=== PATIENT | female | born 1995 | race Caucasian/White ===

== ENCOUNTER 2016-05-17 15:45 | Inpatient (IN) | payer MEDICAID ==
--- NOTE | 2016-05-17 16:31 | C.PDOC ---
History Of Present Illness <Emy Corbin - Last Filed: 05/17/16 16:39> <AnandKarissa lemus - Last Filed: 05/17/16 18:50> <Juan Carlos Rico - Last Filed: 05/18/16 00:28> 21 y/o female is brought in to the ED by EMS who report that mother called EMS stating that patient is non compliant with medications. Mother reports history of depression, bipolar disorder, and schizophrenia. Patient not cooperative with EMS or ED staff. Refusing to open her eyes or answer question. EMS noted that the patient was tearful at one point. (Karissa Anand) <Emy Corbin - Last Filed: 05/17/16 16:39> History Per: EMS, Family (mother) History/Exam Limitations: other (pt not cooperating) Onset/Duration Of Symptoms: Unknown Current Symptoms Are (Timing): Still Present Suicide/Self Injury Attempted (Context): None Modifying Factor(s): Other ([facility]) Involuntary Hold By: None Recent travel outside of the [place]: No <ChengKarissa Yosef - Last Filed: 05/17/16 18:50> <JackyCasandrareji - Last Filed: 05/18/16 00:28> Time Seen by Provider: 05/17/16 16:03 Chief Complaint (Nursing): Psychiatric Evaluation Past Medical History Reviewed: Historical Data, Nursing Documentation, Vital Signs - Medical History PMH: Bipolar Disorder, Depression, Schizophrenia Surgical History: No Surg Hx Family History: States: Unknown Family Hx - Social History Hx Tobacco Use: No Hx Alcohol Use: No Hx Substance Use: No - Immunization History Hx Tetanus Toxoid Vaccination: No Hx Influenza Vaccination: No Hx Pneumococcal Vaccination: No <ChengGiovanniKarissa L - Last Filed: 05/17/16 18:50> Vital Signs: Last Vital Signs Temp 98.3 F 05/17/16 23:15 Pulse 51 L 05/17/16 23:15 Resp 14 05/17/16 23:15 BP 111/71 05/17/16 23:15 Pulse Ox 99 05/17/16 23:15 - [facility] Procedures PSYCHIA INTERV/EVAL NEC (08/23/14) Review Of Systems Review Of Systems: ROS cannot be obtained secondary to pt's inabilty to answer questions. (pt uncooperative) <AnandKarissa Yosef - Last Filed: 05/17/16 18:50> Physical Exam - Physical Exam Appears: Non-toxic, No Acute Distress Skin: Normal Color, Warm, Dry Head: Atraumatic, Normacephalic Eye(s): bilateral: PERRL, Other (pt refusing to open eyes) Neck: Supple Chest: Symmetrical Cardiovascular: Rhythm Regular Respiratory: Normal Breath Sounds, No Rales, No Rhonchi, No Wheezing Pulses: Left Radial: Normal, Right Radial: Normal Neurological/Psych: Other (pt nonverbal, refusing to answer question or open her eyes, nonresponsive to verbal stimuli) Pain Response: Withdraws With Pain <AnandKarissa Yosef - Last Filed: 05/17/16 18:50> ED Course And Treatment - Laboratory Results Result Diagrams: 05/17/16 17:15 05/17/16 17:15 Lab Interpretation: No Acute Changes O2 Sat by Pulse Oximetry: 100 (ra) Pulse Ox Interpretation: Normal <AnandKarissa Yosef - Last Filed: 05/17/16 18:50> - Laboratory Results Result Diagrams: 05/17/16 17:15 05/17/16 17:15 O2 Sat by Pulse Oximetry: 100 Pulse Ox Interpretation: Normal - Radiology CXR: Interpreted by Me, Viewed By Me CXR Interpretation: No: Infiltrates, Fracture, Pnemothorax <Juan Carlos Rico - Last Filed: 05/18/16 00:28> Supervising Attending Note - Supervising Attending Note The Documented history was done by the: Physician Tax Assistant The documented physical exam was done by the: Physician Tax Assistant The documented procedures were done by the: Physician Tax Assistant EM CAVEAT: Acuity of Condition, Uncooperative, Language Barrier - Attestation: I have personally seen and examined this patient.: Yes I have fully participated in the care of the patient.: Yes I have reviewed all pertinent clinical information, including history, physical exam and plan: Yes <Emy Corbin - Last Filed: 05/17/16 16:39> <ChengKarissa L - Last Filed: 05/17/16 18:50> <Juan Carlos Rico - Last Filed: 05/18/16 00:28> - Notes: Notes:: LIMITED DUE TO UNCOOP, POOR HISTORIAN. FAMILY STATES PT ACTING BIZARRE, NONCOMPLIANT W MEDS UNK DURATION. EXAM ABOVE. PT FOCAL WITHDRAWAL, ACTIVE FIGHTING AWAY NOXIOUS STIM, ACTIVE RESISTANCE TO EYE EXAM, NONVERBAL. VSS. (Emy Corbin) Medical Decision Making <Emy Corbin - Last Filed: 05/17/16 16:39> <Karissa Anand - Last Filed: 05/17/16 18:50> <Juan Carlos Rico - Last Filed: 05/18/16 00:28> Medical Decision Making: Impression: as per EMS for evaluation per mother's request. Hx bipolar, depression, and schizophrenia. Pt uncooperative, refusing to answer questions or open her eyes. Plan: * Blood Work * Urinalysis * Urine HCG Progress: Patient not cooperative. Call for therapeutic program worker and Dr Corbin also examines patient at bedside. Orders placed for medical clearance. long term care social worker Estela reports that she got in contact with the patient's sister. Sister reports that EMS was called because the patient was banging her head against the wall. She denies any verbalization of suicidal ideation. Sister notes that the patient had been living with her uncle for 4 months and showed up at their mother's house today. She states that the patient is generally non compliant with her treatment. Sister states that when non compliant patient paces and is verbally and physically aggressive, though she has not been known to physically hurt anyone. Sister notes that after EMS was called patient became uncooperative, refusing to respond. Patient remains as such in the ED. Labs reviewed by me and no acute findings. As per therapeutic program worker, patient still refusing to answer questions, will have to call for [facility] [place] Patient care signed out to Dr Rico (Karissa Anand) ED OBSERVATION <Emy Corbin - Last Filed: 05/17/16 16:39> Date of observation admission: 05/17/16 Time of observation admission: 17:00 <Karissa Anand - Last Filed: 05/17/16 18:50> <Juan Carlos Rico - Last Filed: 05/18/16 00:28> - Observation admission statement Patient is being placed in observation because:: Schizophrenia (Karissa Anand) - Goals of Observation Goals of observation are:: Psych Screener (Karissa Anand) - Progress Note Progress Note: 05/17/16 19:00 Patient care signed over to Dr Rico pending screener from [facility] (Karissa Anand) 05/17/16 23:08 still awaiting [facility] screener. Pt without complaints, Vitals stable (Juan Carlos Rico ) Disposition <Emy Corbin - Last Filed: 05/17/16 16:39> <Karissa Anand - Last Filed: 05/17/16 18:50> Discussed With Dr.: Mikayla Pino Comment: accepted the pt onhis service and took over the care at 12:27AM Doctor Will See Patient In The: Hospital Counseled Patient/Family Regarding: Studies Performed, Diagnosis - Disposition Disposition Time: 19:00 <Juan Carlos Rico - Last Filed: 05/18/16 00:28> - Disposition Disposition: HOSPITALIZED Condition: FAIR - Clinical Impression Clinical Impression: Schizophrenia <Emy Corbin - Last Filed: 05/17/16 16:39> - PA / HOUSE FELLOW / Resident Statement MD/DO has reviewed & agrees with the documentation as recorded. - Scribe Statement The provider has reviewed the documentation as recorded by the Scribe (Tania Alonzo) <Karissa Anand - Last Filed: 05/17/16 18:50> <Juan Carlos Rico - Last Filed: 05/18/16 00:28> - Scribe Statement All medical record entries made by the Scribe were at my direction and personally dictated by me. I have reviewed the chart and agree that the record accurately reflects my personal performance of the history, physical exam, medical decision making, and the department course for this patient. I have also personally directed, reviewed, and agree with the discharge instructions and disposition. (Karissa Anand) Decision To Admit <Karissa Anand - Last Filed: 05/17/16 18:50> - Pt Status Changed To: Hospital Disposition Of: Inpatient - Admit Certification Admit to Inpatient:: After my assessment, the patient will require hospitalization for at least two midnights. This is because of the severity of symptoms shown, intensity of services needed, and/or the medical risk in this patient being treated as an outpatient. - InPatient: Physician Admission Certification: I certify that this patient requires 2 or more midnights of care for the following reason:: After my assessment, the patient will require hospitalization for at least two midnights. This is because of the severity of symptoms shown, intensity of services needed, and/or the medical risk in this patient being treated as an outpatient. - . Bed Request Type: Psychiatry Admitting Physician: Mikayla Pino <Juan Carlos Rico - Last Filed: 05/18/16 00:28> - . Patient Diagnosis: Schizophrenia
[2016-05-17 17:18] LABS: RBC URINE 1 /hpf (0-3); URINE BACTERIA RARE (<OCC); URINE BILIRUBIN NEGATIVE (NEGATIVE); URINE BLOOD NEGATIVE (NEGATIVE); URINE COLOR Yellow (YELLOW); URINE GLUCOSE (UA) NORMAL (Normal); URINE KETONE TRACE mg/dL (NEGATIVE); URINE LEUKOCYTE ESTERASE NEG Leu/uL (Negative); URINE PROTEIN 1+ mg/dL (NEGATIVE); URINE UROBILINOGEN NORMAL mg/dL (0.2-1.0); WBC URINE 1 /hpf (0-5)
[2016-05-17 17:18] LABS: BASO % 0.6 % (0.0-2.0); EOS # 0.1 K/uL (0.0-0.7); EOS % 1.1 % (0.0-4.0); HEMATOCRIT 35.7 % (34.0-47.0); LYMPH # 2.5 K/uL (1.0-4.3); LYMPH % 30.3 % (20.0-40.0); MEAN CELL VOLUME 87.6 fL (81.0-99.0); MEAN CORPUSCULAR HEMOGLOBIN 30.7 pg (27.0-31.0); MEAN CORPUSCULAR HGB CONC 35.1 g/dL (33.0-37.0); MEAN PLATELET VOLUME 7.7 fL (7.2-11.7); MONO # 0.9 K/uL (0.0-0.8); MONO % 11.1 % (0.0-10.0); RED CELL DISTRIBUTION WIDTH 12.5 % (11.5-14.5); WHITE BLOOD COUNT 8.2 K/uL (4.8-10.8)
[2016-05-17 17:41] LABS: CHLORIDE 97 mmol/L (98-107)
[2016-05-17 17:42] LABS: POTASSIUM 3.6 mmol/L (3.6-5.2); SODIUM 141 mmol/L (132-148)
[2016-05-17 17:44] LABS: ALB/GLOB RATIO 1.2 (1.0-2.1); ALKALINE PHOSPHATASE 43 U/L (38-126); ALT/SGPT 28 U/L (9-52); AST/SGOT 17 U/L (14-36); BILIRUBIN,TOTAL 0.5 mg/dL (0.2-1.3); BLOOD UREA NITROGEN 9 mg/dL (7-17); CARBON DIOXIDE 30 mmol/L (22-30); GFR AFRICAN-AMERICAN > 60; GLUCOSE,RANDOM 92 mg/dL (65-105); TOTAL PROTEIN 7.1 g/dL (6.3-8.3)
[2016-05-17 17:45] LABS: ALCOHOL SERUM < 10 mg/dl (0-10); CALCIUM 8.6 mg/dl (8.6-10.4)
[2016-05-18 00:28] VITALS: O2SAT 100
[2016-05-18] MEDS ORDERED: Influenza Virus Vaccine 45 mcg/0.5 ml Syr IM ONE (01:59)
[2016-05-18] MEDS ORDERED: Pneumococcal 23-Valent Vaccine IM ONE (01:59)
--- NOTE | 2016-05-18 09:33 | RAD ---
PROCEDURE: CHEST RADIOGRAPH, 1 VIEW HISTORY: medical screening COMPARISON: None available. FINDINGS: LUNGS: Clear. PLEURA: No pneumothorax or pleural fluid seen. CARDIOVASCULAR: Normal. OSSEOUS STRUCTURES: No significant abnormalities. VISUALIZED UPPER ABDOMEN: Normal. OTHER FINDINGS: None. IMPRESSION: No active disease.
--- NOTE | 2016-05-18 12:08 | PCM.PSYCH ---
Initial Psychiatric Evaluation - Initial Psychiatric Evaluation Type of Admission: Voluntary Legal Status: Capacity Chief Complaint (in patient's own words): "I'm sleepy" History of Present Illness and Precipitating Events: The patient is seen, chart reviewed and case discussed. This is a 21-year-old female, single, no child, unemployed, brought here by her family. The patient was living with her brother in [place] for the last 4 months and getting treatment, but she suddenly came back to [place] without letting her family and off. Her brother is on vacation and could not be reached. Her family brought her in because she was acting bizarre, banging her head on the wall and getting aggressive. She was also almost catatonic in ER. They reported that the patient has a chronic mental illness, schizophrenia or bipolar disorder, and was on a depot medication once a month which they don't know the name. They do not know why she left [place] but the patient last night said that she was upset about an ex-boyfriend getting . However again is not clear why she left [place]. The patient would not elaborate to the science writer either. The patient states "no" or "I don't know" to most questions including suicidality and homicidality and hallucinations/delusions. However, she looks internally preoccupied, is our and inappropriate such as she disrobe in the hallway and she was also aggressive with staff at times. Unknown drug hx but UDS is negative Past psych history: Patient has been hospitalized in the past. Her medications are unknown at this point. Family psych history: Unknown Medical history: Unknown Current Medications: Active Medications Generic Name Dose Route Start Last Admin Trade Name Freq PRN Reason Stop Dose Admin Benztropine Mesylate 0.5 mg 05/18/16 10:00 05/18/16 09:31 Cogentin PO 0.5 mg BID FRANKY Administration Divalproex Sodium 500 mg 05/18/16 18:00 Depakote Er PO BID FRANKY Haloperidol 5 mg 05/18/16 10:00 05/18/16 09:31 Haldol PO 5 mg BID FRANKY Administration Haloperidol 5 mg 05/18/16 08:31 Haldol PO Q2H PRN agitation, max 4x/24h Hydroxyzine HCl 25 mg 05/18/16 08:29 Atarax PO Q4H PRN Anxiety Ibuprofen 600 mg 05/18/16 08:29 Motrin Tab PO Q6H PRN Pain, moderate (4-7) Lorazepam 1 mg 05/18/16 10:00 05/18/16 09:37 Ativan PO 1 mg BID FRANKY Administration Quetiapine Fumarate 100 mg 05/18/16 22:00 Seroquel PO HS FRANKY Trazodone HCl 50 mg 05/18/16 08:29 Desyrel PO HS PRN Insomnia Past Psychiatric History - Past Psychiatric History Previous Treatment History: Inpatient Pertinent Medical Hx (Current Medical&Sleep Prob, Allergies): Allergies Allergy/AdvReac Type Severity Reaction Status Date / Time No Known Allergies Allergy Verified 02/05/15 08:18 Famotidine [Pepcid AC] 20 mg PO DAILY #20 ctb 02/05/15 Haloperidol Decanoate [Haldol Decanoate--long acting] 1 ml IM ONCE 02/05/15 Sikes 1 tab PO BID 02/05/15 Review of Systems - Neurological Neurological: Confusion - Psychiatric Psychiatric: Abnormal Sleep Pattern, Irritability. absent: Homicidal Ideation, Suicidal Ideation Mental Status Examination - Personal Presentation Personal Presentation: Looks stated age - Affect Affect: Flat - Motor Activity Motor Activity: Psychomotor Agitation - Reliability in Providing Information Reliability in Providing Information: Poor, due to alteration in thoughts - Speech Speech: Disorganized, Irrelevant - Mood Mood: Anxious - Formal Thought Process Formal Thought Process: Loosening of associations - Cognitive Functions Orientation: Situation (cannot be assessed due to no cooperation) Attention/Concentration: Easily distracted Abstract Thinking: [place] Estimate of Intelligence: Below average Judgement: Imparied, as evidence by: Poor judgement Memory: Recent impaired, as evidence by: Inability to recall events of the day, Remote impaired as evidenced by: Inability to recall sig life events - Risk Risk: Diminished functioning, Other (catatonia) - Strength & Assets Inventory Strength & Assets Inventory: Family support DSM 5 DX - DSM 5 DSM 5 Diagnosis: Schizoaffective d/o - bipolar type - Recommended/Plan of Treatment Treatment Recommendations and Plan of Treatment: Haldol 5 mg BID for psychosis Depakote ER 500 mg BID for mood sxs Cogentin 0.5 mg BID for SEs Ativan 1 mg BID for catatonic sxs/anxiety Seroquel 50 hs for insomnia Collateral info from family re her depot med Close observation Support and psychoed family meeting Refer to DTP on d/c 33 min Projected ELOS: 7 days Prognosis: good with treatment Discharge Plan and Discharge Criteria: No psychosis or chelsea, no catatonic sxs refer to DTP
[2016-05-18] MEDS: Divalproex 500 mg ER Tab PO SCH (18:35)
[2016-05-19] MEDS: Divalproex 500 mg ER Tab PO SCH ×2 (09:08→17:34)
--- NOTE | 2016-05-19 13:38 | PCM.PYCHPN ---
Psychiatric Progress Note - Psychiatric Progress Note Patient seen today, length of contact: 16 min Patient Chief Complaint: "I'm OK" Problems Identified/Issues Discussed: The pt is seen, chart reviewed, case discussed with staff. The pt is compliant with medications and reports no side-effects. Symptoms are improving slowly but needs more time to stabilize. She is however still disorganized, less catatonic. Singing loudly in the hallways - redirectable. She claimed she came on her own but a friend helped her (from [place] to [place]) and that she will NOT go back and will stay with her mother.. She is OK with attending [facility]. Medication Change: Yes (adjust ativan) Medical Record Reviewed: Yes Mental Status Examination - Cognitive Function Orientation: Person, Place, Situation, Time Memory: Impaired Attention: Poor Concentration: Poor Association: Loose Fund of Knowledge: Poor - Mood Mood: Anxious - Affect Affect: Constricted - Speech Speech: Loud - Formal Thought Process Formal Thought Process: Paranoia, Loosening of associations Goal/Treatment Plan - Goal/Treatment Plan Need for Continued Stay: Discharge may exacerbated symptoms, Severe functional impairment Progress Toward Problem(s) and Goals/Treatment Plan: Haldol 5 mg BID for psychosis Depakote ER 500 mg BID for mood sxs Cogentin 0.5 mg BID for SEs Ativan 0.5 mg TID for catatonic sxs/anxiety Seroquel 50 hs for insomnia Collateral info from family re her depot med Close observation Support and psychoed family meeting Refer to DTP on d/c Estimated Date of D/C: 05/24/16
[2016-05-20] MEDS: Divalproex 500 mg ER Tab PO SCH ×2 (09:32→18:14)
--- NOTE | 2016-05-20 15:27 | PCM.PYCHPN ---
Psychiatric Progress Note - Psychiatric Progress Note Patient seen today, length of contact: 16 min Patient Chief Complaint: I want to leave Problems Identified/Issues Discussed: Patient seen and evaluated, chart reviewed and discussed with the nurse. Patient remained disorganized and internally preoccupied. Patient reports irritability, anxiety and agitation. Patient still appears paranoid and delusional. She denies hearing any voices. She is taking medication and denied any side effects. Supportive therapy and psychoeducation were given. Medication Change: Yes (Increase Haldol) Medical Record Reviewed: Yes Mental Status Examination - Cognitive Function Orientation: Person, Place, Situation, Time Memory: Impaired Attention: Poor Concentration: Poor Association: Loose Fund of Knowledge: Poor - Mood Mood: Anxious - Affect Affect: Constricted - Speech Speech: Loud - Formal Thought Process Formal Thought Process: Delusions, Paranoia, Loosening of associations - Suicidal Ideation Suicidal Ideation: No - Homicidal Ideation Homicidal Ideation: No Goal/Treatment Plan - Goal/Treatment Plan Need for Continued Stay: Discharge may exacerbated symptoms, Severe functional impairment Progress Toward Problem(s) and Goals/Treatment Plan: Schizoaffective disorder bipolar type CBT Psychoeducation Supportive therapy Haldol 5 mg PO Daily Increase Haldol 10 mg at bedtime Depakote ER 500 mg BID for mood sxs Cogentin 0.5 mg BID for SEs Ativan 1 mg BID for catatonic sxs/anxiety Seroquel 50 hs for insomnia Collateral info from family re her depot med Close observation Support and psychoed family meeting Refer to DTP on d/c Estimated Date of D/C: 05/24/16 - Smoking Cessation Smoking Cessation Initiated: No
[2016-05-21] MEDS: Divalproex 500 mg ER Tab PO SCH ×2 (10:51→17:21)
--- NOTE | 2016-05-21 11:19 | PCM.PYCHPN ---
Psychiatric Progress Note - Psychiatric Progress Note Patient seen today, length of contact: 17 min Patient Chief Complaint: I'm feeling better Problems Identified/Issues Discussed: Patient seen and evaluated, chart reviewed and discussed with the nurse. As per the staff patient is taking her medications but still wandering in the hallways. Today patient appeared a bit organized and kempt, but remained internally preoccupied. Patient reports improvement in her mood but still appears paranoid and delusional. She is taking medication and denied any side effects. Supportive therapy and psychoeducation were given. Medication Change: Yes (Increase Haldol) Medical Record Reviewed: Yes Mental Status Examination - Cognitive Function Orientation: Person, Place, Situation, Time Memory: Impaired Attention: Poor Concentration: Poor Association: Loose Fund of Knowledge: Poor - Mood Mood: Anxious - Affect Affect: Constricted - Speech Speech: Loud - Formal Thought Process Formal Thought Process: Delusions, Paranoia, Loosening of associations - Suicidal Ideation Suicidal Ideation: No - Homicidal Ideation Homicidal Ideation: No Goal/Treatment Plan - Goal/Treatment Plan Need for Continued Stay: Discharge may exacerbated symptoms, Severe functional impairment Progress Toward Problem(s) and Goals/Treatment Plan: Schizoaffective disorder bipolar type CBT Psychoeducation Supportive therapy Increase Haldol 10 mg PO Daily Haldol 10 mg at bedtime Depakote ER 500 mg BID for mood sxs Cogentin 0.5 mg BID for SEs Ativan 1 mg BID for catatonic sxs/anxiety Seroquel 50 hs for insomnia Collateral info from family re her depot med Close observation Support and psychoed family meeting Refer to DTP on d/c Estimated Date of D/C: 05/24/16 - Smoking Cessation Smoking Cessation Initiated: No
--- NOTE | 2016-05-21 14:44 | CARD ---
APPROVED REPORT EKG Measurement Heart [id number] <Conclusion> Sinus bradycardia Early repolarization Otherwise normal ECG
[2016-05-22] MEDS: Divalproex 500 mg ER Tab PO SCH ×2 (10:14→17:02)
[2016-05-23] MEDS: Divalproex 500 mg ER Tab PO SCH ×2 (10:06→17:23)
--- NOTE | 2016-05-23 11:59 | PCM.PYCHPN ---
Psychiatric Progress Note - Psychiatric Progress Note Patient seen today, length of contact: 17 min Patient Chief Complaint: I'm feeling much better Problems Identified/Issues Discussed: Patient seen and evaluated, chart reviewed and discussed with the nurse. As per the staff patient is taking her medications and there were no noted episodes of psychosis. Today patient appeared organized and kempt, she was well dressed but remained internally preoccupied with a strong desire to return home to her mother's apartment. The pt denies continuing to have a constant flow of thoughts race through her head today. Patient reports improvement in her mood but still appears paranoid and delusional. She is taking medication and denied any side effects. Supportive therapy and psychoeducation were given. Medication Change: Yes (Increase Haldol) Medical Record Reviewed: Yes Mental Status Examination - Cognitive Function Orientation: Person, Place, Situation, Time Memory: Impaired Attention: Poor Concentration: Poor Association: Loose Fund of Knowledge: Poor - Mood Mood: Anxious - Affect Affect: Constricted - Speech Speech: Loud - Formal Thought Process Formal Thought Process: Delusions, Paranoia, Loosening of associations - Suicidal Ideation Suicidal Ideation: No - Homicidal Ideation Homicidal Ideation: No Goal/Treatment Plan - Goal/Treatment Plan Need for Continued Stay: Discharge may exacerbated symptoms, Severe functional impairment Progress Toward Problem(s) and Goals/Treatment Plan: Schizoaffective disorder bipolar type CBT Psychoeducation Supportive therapy Increase Haldol 10 mg PO Daily Haldol 10 mg at bedtime Depakote ER 500 mg BID for mood sxs Cogentin 0.5 mg BID for SEs Ativan 1 mg BID for catatonic sxs/anxiety Seroquel 50 hs for insomnia Collateral info from family re her depot med Close observation Support and psychoed family meeting Refer to DTP on d/c Estimated Date of D/C: 05/24/16
[2016-05-24] MEDS: Divalproex 500 mg ER Tab PO SCH ×2 (10:29→17:04)
--- NOTE | 2016-05-24 18:09 | PCM.PYCHPN ---
Psychiatric Progress Note - Psychiatric Progress Note Patient seen today, length of contact: 17 min Patient Chief Complaint: I'm feeling much better Problems Identified/Issues Discussed: Patient seen and evaluated, chart reviewed and discussed with the nurse. As per the staff pt still appeared less delusional and less internally preoccupied. However, pt remained calm and cooperative. Patient reports improvement in the hallucinations but still reports, 'multiple voices in the head that are talking to her and are very mean to her.' Pt remained isolated, withdrawn and remained confined to his room. Patient still appears paranoid and delusional. She is taking medication and tolerating very well. Spoke to the mother and informed her about the discharge plan on Friday. Medication Change: No Medical Record Reviewed: Yes Mental Status Examination - Cognitive Function Orientation: Person, Place, Situation, Time Memory: Impaired Attention: WNL Concentration: WNL Association: Loose Fund of Knowledge: Poor - Mood Mood: Anxious - Affect Affect: Constricted - Speech Speech: Loud - Formal Thought Process Formal Thought Process: Hallucinations, Paranoia, Loosening of associations - Suicidal Ideation Suicidal Ideation: No - Homicidal Ideation Homicidal Ideation: No Goal/Treatment Plan - Goal/Treatment Plan Need for Continued Stay: Discharge may exacerbated symptoms, Severe functional impairment Progress Toward Problem(s) and Goals/Treatment Plan: Schizoaffective disorder bipolar type CBT Psychoeducation Supportive therapy Haldol 10 mg PO Daily Haldol 10 mg at bedtime Depakote ER 500 mg BID for mood sxs Cogentin 0.5 mg BID for SEs Ativan 1 mg BID for catatonic sxs/anxiety Seroquel 50 hs for insomnia Collateral info from family re her depot med Close observation Support and psychoed family meeting Refer to DTP on d/c Estimated Date of D/C: 05/24/16 - Smoking Cessation Smoking Cessation Initiated: No
[2016-05-25] MEDS: Divalproex 500 mg ER Tab PO SCH ×2 (10:22→19:05)
--- NOTE | 2016-05-25 14:18 | PCM.PYCHPN ---
Psychiatric Progress Note - Psychiatric Progress Note Patient seen today, length of contact: 15 minutes Patient Chief Complaint: I'm feeling better today Problems Identified/Issues Discussed: Patient seen. Chart reviewed. Case discussed with the staff. Issues related to illness and treatment were discussed with the patient. Reported compliant with treatment with no adverse affects. Tolerating treatment very well. Patient reported feeling much better. According to staff, patient his more clear in her thoughts, less isolative and more cooperative. At the time of evaluation, patient was awake alert oriented 3, had no delusions, no auditory or visual hallucinations, no suicidal ideations or homicidal ideations. Medical Problems: None reported Diagnostic Results: Reviewed DSM 5 Symptoms Update: Improving with treatment Medication Change: No Medical Record Reviewed: Yes Mental Status Examination - Cognitive Function Orientation: Person, Place, Situation, Time Memory: Intact Attention: WNL Concentration: WNL Association: WNL Fund of Knowledge: [facility] Decription of patient's judgement and insights: Fair - Mood Mood: Anxious - Affect Affect: Constricted - Speech Speech: Soft - Formal Thought Process Formal Thought Process: Other - Suicidal Ideation Suicidal Ideation: No - Homicidal Ideation Homicidal Ideation: No Goal/Treatment Plan - Goal/Treatment Plan Need for Continued Stay: Remain at risks for inpatient hospitalization, Discharge may exacerbated symptoms, Severe functional impairment Progress Toward Problem(s) and Goals/Treatment Plan: Improving with treatment Patient education Supportive therapy Continue treatment as before Estimated Date of D/C: 05/27/16 - Smoking Cessation Smoking Cessation Initiated: No
[2016-05-26] MEDS: Divalproex 500 mg ER Tab PO SCH ×2 (09:01→17:33)
--- NOTE | 2016-05-26 17:21 | PCM.PYCHPN ---
Psychiatric Progress Note - Psychiatric Progress Note Patient seen today, length of contact: 15 minutes Patient Chief Complaint: I'm feeling better. Can I go home today Problems Identified/Issues Discussed: Patient seen. Chart reviewed. Case discussed with the staff. Issues related to illness and treatment were discussed with the patient. Reported compliant with treatment with no adverse affects. Tolerating treatment very well. Patient reported feeling much better. According to staff, patient his more clear in her thoughts, less isolative and more cooperative. At the time of evaluation, patient was awake alert oriented 3, had no delusions, no auditory or visual hallucinations, no suicidal ideations or homicidal ideations. Medical Problems: None reported Diagnostic Results: Reviewed DSM 5 Symptoms Update: Improving with treatment Medication Change: No Medical Record Reviewed: Yes Mental Status Examination - Cognitive Function Orientation: Person, Place, Situation, Time Memory: Intact Attention: WNL Concentration: WNL Association: WNL Fund of Knowledge: [facility] Decription of patient's judgement and insights: Fair - Mood Mood: Anxious - Affect Affect: Other (Appropriate) - Speech Speech: Soft - Formal Thought Process Formal Thought Process: No Impairment Psychotic Thoughts and Behaviors: None - Suicidal Ideation Suicidal Ideation: No - Homicidal Ideation Homicidal Ideation: No Goal/Treatment Plan - Goal/Treatment Plan Need for Continued Stay: Remain at risks for inpatient hospitalization, Discharge may exacerbated symptoms, Severe functional impairment Progress Toward Problem(s) and Goals/Treatment Plan: Improving with treatment Patient education Supportive therapy Continue treatment as before Estimated Date of D/C: 05/27/16 - Smoking Cessation Smoking Cessation Initiated: No
[2016-05-27 07:48] VITALS: BP 98/69; PULSE 69; RESP 18; TEMP 96.9
[2016-05-27] MEDS: Divalproex 500 mg ER Tab PO SCH (09:35)
--- NOTE | 2016-05-27 09:50 | PCM.PYCHDC ---
Mental Status Examination - Mental Status Examination Orientation: Person, Place, Situation, Time Memory: Intact Mood: Neutral Affect: Constricted Speech: Soft Attention: WNL Concentration: WNL Association: WNL Fund of Knowledge: WNL Formal Thought Process: No Impairment Description of patient's judgement and insight: good, fair Psychotic Thoughts and Behaviors: denies any AVH Suicidal Ideation: No Current Homicidal Ideation?: No Discharge Summary - Discharge Note Reason for Hospitalization: This is a 21-year-old female, single, no child, unemployed, brought here by her family. The patient was living with her brother in [place] for the last 4 months and getting treatment, but she suddenly came back to [place] without letting her family and off. Her brother is on vacation and could not be reached. Her family brought her in because she was acting bizarre, banging her head on the wall and getting aggressive. She was also almost catatonic in ER. They reported that the patient has a chronic mental illness, schizophrenia or bipolar disorder, and was on a depot medication once a month which they don't know the name. They do not know why she left [place] but the patient last night said that she was upset about an ex-boyfriend getting . However again is not clear why she left [place]. The patient would not elaborate to the global technical writer either. The patient states "no" or "I don't know" to most questions including suicidality and homicidality and hallucinations/delusions. However, she looks internally preoccupied, is our and inappropriate such as she disrobe in the hallway and she was also aggressive with staff at times. Unknown drug hx but UDS is negative Consultations:: List each consultation separately and include: 1. Reason for request. 2. Findings. 3. Follow-up Summary of Hospital Course include:: 1. Description of specific treatment plan utilized for patients during their course of treatmen. 2. Summarize the time- course for resolution of acute symptoms and/or regressed behaviors. 3. Describe issues identified and worked on during hospitalization. 4. Describe medication utilized. 5. Describe medical problems identified and treated. 6. Reassessment of suicide risk Summary of Hospital Course: During the course of her stay, patient (pt) started progressively improving and she no longer remained irritable, anxious and paranoid. Her mood and paranoia were improved and she started attending groups and meetings and started socializing. Patient denied any feelings of hopelessness, helplessness, and worthlessness, denied any problem with the sleep or appetite, denied suicidal ideation or homicidal ideation. Pt denied any auditory or visual hallucinations. Some changes were made in her current medications and patient was discharged on following medications. She tolerated these medications very well and denied any side effects. - Final Diagnosis (DSM 5) Condition upon Discharge: FAIR DSM 5: Schizoaffective disorder bipolar type [place] use disorder moderate Disposition: HOME/ ROUTINE Follow-up Treatment Plan: Education: Pt was educated and counseled about the risks and benefits of taking and not taking medications. Pt was educated and counseled about the risks of drinking and abusing drugs. Pt was educated and counseled to go to the ER or call 911 if pt develop suicidal ideation or homicidal ideation, worsening of symptoms or severe side effects of the meds. Prescriptions/Medication Reconciliation: Benztropine [Cogentin] 0.5 mg PO BID #60 tab Divalproex [Depakote ER] 500 mg PO BID #60 ter Haloperidol [Haldol] 10 mg PO BID #60 tab QUEtiapine [SEROquel] 50 mg PO HS #30 tab - Smoking Cessation Smoking Cessation Medication prescribed: No - Antipsychotic Medications Pt discharged on 2 or more routine antipsychotic medications: Yes
== END 2016-05-27 10:30 | disposition home or self-care (01) | DRG 430 ==
LOC: C.ER 15:45 → OBSVTOIN 17:00 → C.9OBSV 17:00 → C.5E 05-18 00:38
PROVIDERS: ADMIT Psychiatry & Neurology Psychiatry; ATTEND Psychiatry & Neurology Psychiatry
PROC: GZ3ZZZZ Medication Management (ICD-10-PCS; principal; 2016-05-17)
PROC: GZ72ZZZ Family Psychotherapy (ICD-10-PCS; 2016-05-17)
PROC: GZ56ZZZ Individual Psychotherapy, Supportive (ICD-10-PCS; 2016-05-17)
DX: F25.0 Schizoaffective disorder, bipolar type (principal); Z91.19 Patient's noncompliance with other medical treatment and regimen; F12.10 Cannabis abuse, uncomplicated

== ENCOUNTER 2016-10-27 12:42 | Emergency (ER) | payer MEDICAID ==
[2016-10-27 12:49] VITALS: O2SAT 99
[2016-10-27] MEDS ORDERED: Sodium Chloride 0.9% 1,000 ML IV ONE (13:03)
--- NOTE | 2016-10-27 13:07 | C.PDOC ---
History Of Present Illness Patient is a 21 y/o F presenting with 3 day history of periumbilical abdominal pain and NB watery diarrhea. She describes the pain as an intermittent crampy pain that does not radiate. She reports that the pain is improved with defecation. Denies recent antibiotic use. Denies recent travel outside [place]. Denies fever/chills, nausea/vomiting, dysuria, vaginal bleeding or discharge. She also reports hx of bipolar disorder and reports that she does not have any current psychiatric follow-up and would like to speak to psych to help arrange this. Denies HI/SI, AH/VH. Time Seen by Provider: 10/27/16 12:52 Chief Complaint (Nursing): Abdominal Pain Past Medical History Vital Signs: Last Vital Signs Temp 98.5 F 10/27/16 12:47 Pulse 67 10/27/16 12:47 Resp 18 10/27/16 12:47 BP 121/84 10/27/16 12:47 Pulse Ox 99 10/27/16 14:04 - Medical History PMH: Bipolar Disorder, Depression, Schizophrenia - [facility] Procedures FAMILY PSYCHOTHERAPY (05/17/16) INDIVIDUAL PSYCHOTHERAPY, SUPPORTIVE (05/17/16) MEDICATION MANAGEMENT (05/17/16) PSYCHIA INTERV/EVAL NEC (08/23/14) Family History: States: Unknown Family Hx - Social History Hx Tobacco Use: No Hx Alcohol Use: No Hx Substance Use: No - Immunization History Hx Tetanus Toxoid Vaccination: No Hx Influenza Vaccination: No Hx Pneumococcal Vaccination: No Review Of Systems Constitutional: Negative for: Fever, Chills Eyes: Negative for: Pain Cardiovascular: Negative for: Chest Pain, Palpitations, Orthopnea, Edema, Light Headedness Respiratory: Negative for: Cough, Shortness of Breath, SOB with Excertion, Wheezing Gastrointestinal: Positive for: Abdominal Pain, Diarrhea. Negative for: Nausea , Vomiting, Constipation, Melena, Rectal Pain Genitourinary: Negative for: Dysuria, Frequency, Hematuria, Vaginal Discharge, Vaginal Bleeding, Pelvic Pain Musculoskeletal: Negative for: Neck Pain Skin: Negative for: Rash Neurological: Negative for: Weakness, Numbness, Seizures, Altered Mental Status , Headache Psych: Negative for: Depression, Suicidal ideation Physical Exam - Physical Exam Appears: Well, Non-toxic, No Acute Distress Skin: Normal Color, Warm, Dry Head: Atraumatic, Normacephalic Eye(s): bilateral: Normal Inspection, PERRL, EOMI Chest: Symmetrical Cardiovascular: Rhythm Regular Respiratory: Normal Breath Sounds, No Rales, No Rhonchi, No Stridor, No Wheezing Gastrointestinal/Abdominal: Soft, No Tenderness, No Mass, No Distention Back: Normal Inspection, No CVA Tenderness Extremity: Normal ROM, No Tenderness, No Swelling Neurological/Psych: Oriented x3, Normal Speech, Normal Cranial Nerves, Normal Motor Gait: Steady ED Course And Treatment - Laboratory Results Result Diagrams: 10/27/16 13:38 10/27/16 13:38 O2 Sat by Pulse Oximetry: 99 Medical Decision Making Medical Decision Making: Spoke to psych who will evaluate to provide outpatient follow-up. Abdomen soft NT/ND. Will get labs and ua and reeval 2:02PM negative. UA negative. Labs grossly normal. Abdomen continues to be soft NT/ND. She is tolerating po and feels well. She has had no additional diarrhea in ED. She was given psychiatric follow-up. Disposition - Disposition Disposition: HOME/ ROUTINE Disposition Time: 14:03 Condition: GOOD Additional Instructions: Follow up with psychiatry as arranged. Follow-up with PMD within 2 days. Return to ED if condition worsens. Instructions: Acute Diarrhea (ED) Forms: [employer] ([place]) - Clinical Impression Clinical Impression: Diarrhea
[2016-10-27] MEDS ORDERED: Sodium Chloride 0.9% 1,000 ML ONE (13:21)
[2016-10-27 13:44] LABS: BASO % 0.5 % (0.0-2.0); EOS % 0.2 % (0.0-4.0); HEMATOCRIT 36.6 % (34.0-47.0); LYMPH # 2.1 K/uL (1.0-4.3); LYMPH % 24.6 % (20.0-40.0); MEAN CELL VOLUME 90.4 fL (81.0-99.0); MEAN CORPUSCULAR HEMOGLOBIN 30.1 pg (27.0-31.0); MEAN CORPUSCULAR HGB CONC 33.4 g/dL (33.0-37.0); MONO # 0.4 K/uL (0.0-0.8); MONO % 5.2 % (0.0-10.0); RED CELL DISTRIBUTION WIDTH 11.4 % (11.5-14.5); WHITE BLOOD COUNT 8.6 K/uL (4.8-10.8)
[2016-10-27 13:48] LABS: RBC URINE 1 /hpf (0-3); URINE BILIRUBIN NEGATIVE (NEGATIVE); URINE BLOOD NEGATIVE (NEGATIVE); URINE COLOR Straw (YELLOW); URINE GLUCOSE (UA) NORMAL (Normal); URINE KETONE NEGATIVE (NEGATIVE); URINE LEUKOCYTE ESTERASE NEG Leu/uL (Negative); URINE PROTEIN NEGATIVE (NEGATIVE); URINE UROBILINOGEN NORMAL mg/dL (0.2-1.0); WBC URINE < 1 /hpf (0-5)
[2016-10-27 13:53] LABS: CHLORIDE 102 mmol/L (98-107); POTASSIUM 3.9 mmol/L (3.6-5.2); SODIUM 138 mmol/L (132-148)
[2016-10-27 13:55] LABS: ALB/GLOB RATIO 1.2 (1.0-2.1); ALKALINE PHOSPHATASE 63 U/L (38-126); AST/SGOT 24 U/L (14-36); BILIRUBIN,TOTAL 0.7 mg/dL (0.2-1.3); BLOOD UREA NITROGEN 10 mg/dL (7-17); CARBON DIOXIDE 26 mmol/L (22-30); GFR AFRICAN-AMERICAN > 60; TOTAL PROTEIN 7.2 g/dL (6.3-8.3)
[2016-10-27 13:56] LABS: ALT/SGPT 35 U/L (9-52); CALCIUM 9.2 mg/dl (8.6-10.4); GLUCOSE,RANDOM 90 mg/dL (65-105); MAGNESIUM 1.7 mg/dL (1.6-2.3); PHOSPHOROUS 3.2 mg/dL (2.5-4.5)
[2016-10-27 14:49] VITALS: BP 121/81; PULSE 61; RESP 20; TEMP 98.4
== END 2016-10-27 14:49 | disposition home or self-care (01) ==
LOC: C.ER 12:42
DX: R19.7 Diarrhea, unspecified (principal)
CPT/HCPCS: 80053; 81001; 83690; 83735; 84100; 84703; 85025; 96361; 96374; 96375; 99285; J1885; J7040

== ENCOUNTER 2016-11-23 10:44 | Inpatient (IN) | payer MEDICAID ==
--- NOTE | 2016-11-23 11:51 | C.PDOC ---
History Of Present Illness A 21 year old female, whose past medical history includes bipolar disorder, anxiety, depression, and schizophrenia, presents to the emergency department for suicidal ideation, which began 1 week ago. The patient reports she wanted to stab herself, but does not feel that way right now. The patient admits to being in and out of hospitals [place] the [place] due to her bipolar disorder. The patient states she is scared and does not want to leave the hospital, because she says the demons are talking to her and just incase she decides to hurt herself, she would rather be in the hospital. The patient denies any fever , chills, chest pain, shortness of breath, nausea, vomiting, diarrhea, or any other complaints at this time. Time Seen by Provider: 11/23/16 11:17 Chief Complaint (Nursing): Psychiatric Evaluation History Per: Patient History/Exam Limitations: no limitations Onset/Duration Of Symptoms: Days (1 week) Current Symptoms Are (Timing): Still Present Associated Symptoms: Depression, Suicidal Thoughts Past Medical History Reviewed: Historical Data, Nursing Documentation, Vital Signs Vital Signs: Last Vital Signs Temp 99.1 F 11/23/16 11:02 Pulse 70 11/23/16 11:02 Resp 20 11/23/16 11:02 BP 113/73 11/23/16 11:02 Pulse Ox 99 11/23/16 11:59 - Medical History PMH: Anxiety, Bipolar Disorder, Depression, Schizophrenia Denies: Diabetes, Hepatitis, HIV, HTN, Chronic Kidney Disease, Seizures, Sexually Transmitted Disease - [facility] Procedures FAMILY PSYCHOTHERAPY (05/17/16) GROUP PSYCHOTHERAPY (10/31/16) INDIVIDUAL PSYCHOTHERAPY, SUPPORTIVE (05/17/16) MEDICATION MANAGEMENT (05/17/16) PSYCHIA INTERV/EVAL NEC (08/23/14) Family History: States: Unknown Family Hx - Social History Hx Tobacco Use: No Hx Alcohol Use: No Hx Substance Use: No - Immunization History Hx Tetanus Toxoid Vaccination: No Hx Influenza Vaccination: No Hx Pneumococcal Vaccination: No Review Of Systems Except As Marked, All Systems Reviewed And Found Negative. Constitutional: Negative for: Fever, Chills Cardiovascular: Negative for: Chest Pain Respiratory: Negative for: Shortness of Breath Gastrointestinal: Negative for: Nausea, Vomiting, Diarrhea Physical Exam - Physical Exam Appears: Well, No Acute Distress, Other (quiet and withdrawn ) Skin: Normal Color, Warm, Dry Eye(s): bilateral: Normal Inspection, PERRL, EOMI Nose: Normal Throat: Normal Neck: Normal Cardiovascular: Rhythm Regular Respiratory: Normal Breath Sounds Gastrointestinal/Abdominal: Normal Exam Back: Normal Inspection Extremity: Normal ROM Neurological/Psych: Oriented x3, Normal Speech, Normal Cognition, Normal Cranial Nerves, Other (quiet and withdrawn ) ED Course And Treatment - Laboratory Results Result Diagrams: 11/23/16 11:56 11/23/16 11:56 O2 Sat by Pulse Oximetry: 99 Medical Decision Making Medical Decision Making: Treatment Plan: -- Labs -- 1:1 Observation -- [facility] Crisis Evaluation -- Urinalysis Progress Notes: Disposition Counseled Patient/Family Regarding: Studies Performed, Diagnosis - Disposition Disposition: HOSPITALIZED Disposition Time: 16:50 Condition: GUARDED - POA Present On Arrival: None - Clinical Impression Clinical Impression: Bipolar 1 disorder, Suicidal ideation - Scribe Statement The provider has reviewed the documentation as recorded by the Scribe Augustina Hannah All medical record entries made by the Scribe were at my direction and personally dictated by me. I have reviewed the chart and agree that the record accurately reflects my personal performance of the history, physical exam, medical decision making, and the department course for this patient. I have also personally directed, reviewed, and agree with the discharge instructions and disposition. Decision To Admit - Pt Status Changed To: Hospital Disposition Of: Inpatient - Admit Certification Admit to Inpatient:: After my assessment, the patient will require hospitalization for at least two midnights. This is because of the severity of symptoms shown, intensity of services needed, and/or the medical risk in this patient being treated as an outpatient. - InPatient: Physician Admission Certification: I certify that this patient requires 2 or more midnights of care for the following reason:: needs inpatient management - . Bed Request Type: Psychiatry Admitting Physician: Angela Bliss Patient Diagnosis: Bipolar 1 disorder, Suicidal ideation
[2016-11-23 12:03] LABS: RBC URINE < 1 /hpf (0-3); URINE BILIRUBIN NEGATIVE (NEGATIVE); URINE BLOOD NEGATIVE (NEGATIVE); URINE COLOR Straw (YELLOW); URINE GLUCOSE (UA) NORMAL (Normal); URINE KETONE NEGATIVE (NEGATIVE); URINE LEUKOCYTE ESTERASE NEG Leu/uL (Negative); URINE PROTEIN NEGATIVE (NEGATIVE); URINE UROBILINOGEN NORMAL mg/dL (0.2-1.0); WBC URINE < 1 /hpf (0-5)
[2016-11-23 12:04] LABS: BASO % 0.4 % (0.0-2.0); EOS % 0.5 % (0.0-4.0); HEMATOCRIT 37.7 % (34.0-47.0); LYMPH % 30.8 % (20.0-40.0); MEAN CELL VOLUME 90.3 fL (81.0-99.0); MEAN CORPUSCULAR HEMOGLOBIN 31.1 pg (27.0-31.0); MEAN CORPUSCULAR HGB CONC 34.4 g/dL (33.0-37.0); MEAN PLATELET VOLUME 8.1 fL (7.2-11.7); MONO # 0.9 K/uL (0.0-0.8); MONO % 14.1 % (0.0-10.0); RED CELL DISTRIBUTION WIDTH 11.6 % (11.5-14.5); WHITE BLOOD COUNT 6.6 K/uL (4.8-10.8)
[2016-11-23 12:12] LABS: ALB/GLOB RATIO 1.2 (1.0-2.1); ALCOHOL SERUM < 10 mg/dl (0-10); ALKALINE PHOSPHATASE 49 U/L (38-126); ALT/SGPT 22 U/L (9-52); AST/SGOT 20 U/L (14-36); BILIRUBIN,TOTAL 0.4 mg/dL (0.2-1.3); BLOOD UREA NITROGEN 10 mg/dL (7-17); CALCIUM 9.3 mg/dl (8.6-10.4); CARBON DIOXIDE 23 mmol/L (22-30); CHLORIDE 102 mmol/L (98-107); GFR AFRICAN-AMERICAN > 60; GLUCOSE,RANDOM 75 mg/dL (65-105); POTASSIUM 4.2 mmol/L (3.6-5.2); SODIUM 138 mmol/L (132-148)
--- NOTE | 2016-11-23 19:19 | PCM.BM ---
<Shy Toure - Last Filed: 11/23/16 19:19> Treatment Plan Problems - Problems identified on initial assessmt Depression Date Initiated: 11/23/16 Time Initiated: 19:19 Assessment reference: NA Status: Active Treatment assets and liabiliti Patient Assests: adapts well, resourceful, ADL independent, physically healthy, good past tx response - Milieu Protocol Maintain good personal hygiene: daily Encourage regular showers, daily Remind patient to perform daily oral care Conduct patient checks and document Observation sheet: Q15 minutes Maintain personal safety: every shift Educate patient to report safety concerns to staff, every shift Monitor environment for contraband/sharps Medication safety: Monitor for expected outcome, potential side effects: every shift, Assess barriers to learning: every shift, Assess readiness for medication education: every shift <Ruma Richard - Last Filed: 11/25/16 11:15> Family Contact Family involvement: Family/SO is involved Family contact name: Rafael Fung-mother Family contacted how many times per week?: 2 - Goals for Treatment Patient goals for treatment: "I don't know." Discharge/Continuing Care - Education Needs Education Needs: Patient Medication, Patient Coping Skills - Discharge Discharge Criteria: Tolerates medication w/o severe side effects, Free of Suicidal thoughts Discharge to:: Home, With Family - Treatment Team Participation Discussed with Family/SO: Yes Was Patient/Family/SO present at Treatment Team Meeting: Yes <Angela Bliss - Last Filed: 11/25/16 11:18> - Diagnosis (1) Schizoaffective disorder, bipolar type Status: Acute Interventions: 11/25/16 11:17 * Assess/adjust medications daily and /or as needed * See patient on an individual basis 7x/week to assess status of hallucinations * Discuss risks, benefits, side effects and alternatives of medications *
--- NOTE | 2016-11-24 12:23 | PCM.PSYCH ---
Initial Psychiatric Evaluation - Initial Psychiatric Evaluation Type of Admission: Voluntary Legal Status: Capacity Chief Complaint (in patient's own words): I don't know.' History of Present Illness and Precipitating Events: The pt is a 21 yr old female, Fijian speaking, who presents to [facility] due to SI and auditory hallucination. As per the ED note, patient was very disorganized and internally preoccupied and was responding to internal stimuli. The pt was not cooperative and very vague to answering questions. The pt reported that her blood is infected. The pt reported suicidal ideation without any plan. She also reported auditory hallucinations, hearing demons, but did not want to discuss or elaborate further regarding what the demons were stating. The pt was recently at [facility] approximately 2 weeks ago as the pt took a knife to harm herself, but did not follow through. The pt is linked to [facility], but the pt denies attending and is non-complaint with medication. Patient remained guarded, evasive, and paranoid in the unit. She still reporting auditory and visual hallucinations and remained delusional. She also appears very confused and cannot recall the names of her medications. Past medical history None reported Current Medications: Active Medications Generic Name Dose Route Start Last Admin Trade Name Freq PRN Reason Stop Dose Admin Benztropine Mesylate 2 mg 11/23/16 20:31 11/24/16 11:19 Cogentin PO 2 mg Q6 PRN Administration EPS Haloperidol 5 mg 11/23/16 20:31 11/24/16 11:19 Haldol PO 5 mg Q6 PRN Administration Agitation Ibuprofen 600 mg 11/23/16 19:07 Motrin Tab PO Q6 PRN Pain, moderate (4-7) Lorazepam 1 mg 11/23/16 19:07 Ativan PO Q6 PRN Anxiety Quetiapine Fumarate 50 mg 11/23/16 22:00 Seroquel PO HS FRANKY Trazodone HCl 50 mg 11/23/16 19:07 Desyrel PO HS PRN Insomnia Past Psychiatric History - Past Psychiatric History Previous Treatment History: Inpatient Pertinent Medical Hx (Current Medical&Sleep Prob, Allergies): Allergies Allergy/AdvReac Type Severity Reaction Status Date / Time No Known Allergies Allergy Verified 11/23/16 11:08 Omeprazole [Omeprazole] 20 mg PO DAILY 10/31/16 Divalproex Sodium [Divalproex Sodium ER] 500 mg PO BID 11/23/16 Zolpidem Tartrate 5 mg PO HS 11/23/16 risperiDONE [RisperDAL] 2 mg PO BID 11/23/16 Review of Systems - Review of Systems All systems: reviewed and no additional remarkable complaints except - Psychiatric Psychiatric: Anxiety, Auditory Hallucinations, Irritability, Mood Swings, Paranoia, Suicidal Ideation, Visual Hallucinations Mental Status Examination - Personal Presentation Personal Presentation: Looks stated age - Affect Affect: Constricted - Motor Activity Motor Activity: Psychomotor Retardation - Reliability in Providing Information Reliability in Providing Information: Poor, due to alteration in thoughts, Poor , due to altered mood - Speech Speech: Disorganized - Mood Mood: Depressed, Anxious - Formal Thought Process Formal Thought Process: Hallucinations, Delusions, Paranoia, Loosening of associations, Flight of ideas - Hallucinations/Delusions Hallucinations: Visual, Auditory Delusions: Persecution - Obsessions/Compulsions Obsessions: No Compulsions: No - Cognitive Functions Orientation: Person, Place, Situation, Time Sensorium: Alert Attention/Concentration: Attentive Abstract Thinking: [place] Estimate of Intelligence: Below average Judgement: Imparied, as evidence by: Poor judgement, Imparied, as evidence by: Lack of insight into illness - Risk Risk: Suicidal, Diminished functioning - Strength & Assets Inventory Strength & Assets Inventory: Family support DSM 5 DX - DSM 5 DSM 5 Diagnosis: Schizoaffective disorder bipolar type - Recommended/Plan of Treatment Treatment Recommendations and Plan of Treatment: Schizoaffective disorder bipolar type CBT Psychoeducation Supportive therapy, group therapy, individual therapy Risperdal 1 mg by mouth twice a day Depakote 250 mg by mouth twice a day Zoloft 50 mg daily Seroquel 50 mg Trazodone 50 mg by mouth daily at bedtime - Smoking Cessation Smoking Cessation Initiated: No
[2016-11-24] MEDS: Pantoprazole 40 mg EC Tab PO SCH ×2 (13:35→17:20)
--- NOTE | 2016-11-25 10:01 | PCM.PYCHPN ---
Psychiatric Progress Note - Psychiatric Progress Note Patient seen today, length of contact: 15 min Patient Chief Complaint: I am hearing voices.' Problems Identified/Issues Discussed: Patient seen and evaluated, chart reviewed and discussed with the nurse. Patient remained disorganized and internally preoccupied. She still reports of hearing voices but remained guarded about the details. Patient still appears paranoid and delusional. She is constantly pacing back and forth in the hallways and talking to herself. Patient remained isolated, confined and withdrawn. She is taking medication and denies any side effects. Supportive therapy and psychoeducation were given. Medication Change: Yes (increase risperdal) Medical Record Reviewed: Yes Mental Status Examination - Cognitive Function Orientation: Person, Place, Situation, Time Memory: Intact Attention: Poor Concentration: Poor Association: Loose Fund of Knowledge: Poor - Mood Mood: Depressed, Anxious - Affect Affect: Constricted, Depressed - Speech Speech: Soft - Formal Thought Process Formal Thought Process: Hallucinations, Delusions, Paranoia, Loosening of associations, Flight of ideas - Suicidal Ideation Suicidal Ideation: No - Homicidal Ideation Homicidal Ideation: No Goal/Treatment Plan - Goal/Treatment Plan Need for Continued Stay: Discharge may exacerbated symptoms, Severe functional impairment Progress Toward Problem(s) and Goals/Treatment Plan: Schizoaffective disorder bipolar type CBT Psychoeducation Supportive therapy, group therapy, individual therapy Risperdal 1 mg by mouth twice a day Depakote 250 mg by mouth twice a day Zoloft 50 mg daily Seroquel 50 mg Trazodone 50 mg by mouth daily at bedtime - Smoking Cessation Smoking Cessation Initiated: No
[2016-11-25] MEDS: Pantoprazole 40 mg EC Tab PO SCH (11:08)
[2016-11-26] MEDS: Pantoprazole 40 mg EC Tab PO SCH (10:32)
[2016-11-27] MEDS: Pantoprazole 40 mg EC Tab PO SCH (09:45)
[2016-11-28] MEDS: Pantoprazole 40 mg EC Tab PO SCH (09:35)
--- NOTE | 2016-11-28 10:09 | PCM.PYCHPN ---
Psychiatric Progress Note - Psychiatric Progress Note Patient seen today, length of contact: 15 min Patient Chief Complaint: I am feeling little better.' Problems Identified/Issues Discussed: Patient seen and evaluated, chart reviewed and discussed with the nurse. Patient remained disorganized and internally preoccupied and responding to internal stimuli. Patient has wrapped a sheet around her body and is constantly pacing back and forth in the hallways and talking to herself. She reports some improvement in hearing voices but remained guarded about the details. Patient still appears paranoid and delusional. Patient remained depressed, isolated, confined and withdrawn. She is taking medication and denies any side effects. Supportive therapy and psychoeducation were given. Medication Change: Yes (increase zoloft) Medical Record Reviewed: Yes Mental Status Examination - Cognitive Function Orientation: Person, Place, Situation, Time Memory: Intact Attention: Poor Concentration: Poor Association: Loose Fund of Knowledge: Poor - Mood Mood: Depressed, Anxious - Affect Affect: Constricted, Depressed - Speech Speech: Soft - Formal Thought Process Formal Thought Process: Hallucinations, Delusions, Paranoia, Loosening of associations - Suicidal Ideation Suicidal Ideation: No - Homicidal Ideation Homicidal Ideation: No Goal/Treatment Plan - Goal/Treatment Plan Need for Continued Stay: Discharge may exacerbated symptoms, Severe functional impairment Progress Toward Problem(s) and Goals/Treatment Plan: Schizoaffective disorder bipolar type CBT Psychoeducation Supportive therapy, group therapy, individual therapy Risperdal 2 mg by mouth daily Risperdal 3 mg PO QHS Depakote 250 mg by mouth twice a day Zoloft 50 mg daily Seroquel 50 mg Trazodone 50 mg by mouth daily at bedtime - Smoking Cessation Smoking Cessation Initiated: No
--- NOTE | 2016-11-28 10:09 | PCM.PYCHPN ---
Psychiatric Progress Note - Psychiatric Progress Note Patient seen today, length of contact: 15 min Patient Chief Complaint: I am ervin Problems Identified/Issues Discussed: Patient seen and evaluated, chart reviewed and discussed with the nurse. Patient is constantly pacing back and forth in the hallways and talking to herself and making a one way conversation. Patient remained disorganized and internally preoccupied. She still reports of hearing voices but remained guarded about the details. Patient still appears paranoid and delusional. Patient remained isolated, confined and withdrawn. She is taking medication and denies any side effects. Supportive therapy and psychoeducation were given. Medication Change: Yes (increase risperdal) Medical Record Reviewed: Yes Mental Status Examination - Cognitive Function Orientation: Person, Place, Situation, Time Memory: Intact Attention: Poor Concentration: Poor Association: Loose Fund of Knowledge: Poor - Mood Mood: Depressed, Anxious - Affect Affect: Constricted, Depressed - Speech Speech: Soft - Formal Thought Process Formal Thought Process: Hallucinations, Delusions, Paranoia, Loosening of associations, Flight of ideas - Suicidal Ideation Suicidal Ideation: No - Homicidal Ideation Homicidal Ideation: No Goal/Treatment Plan - Goal/Treatment Plan Need for Continued Stay: Discharge may exacerbated symptoms, Severe functional impairment Progress Toward Problem(s) and Goals/Treatment Plan: Schizoaffective disorder bipolar type CBT Psychoeducation Supportive therapy, group therapy, individual therapy Risperdal 2 mg by mouth twice a day Depakote 250 mg by mouth twice a day Zoloft 50 mg daily Seroquel 50 mg Trazodone 50 mg by mouth daily at bedtime - Smoking Cessation Smoking Cessation Initiated: No
--- NOTE | 2016-11-28 22:52 | PCM.PYCHPN ---
Psychiatric Progress Note - Psychiatric Progress Note Patient seen today, length of contact: 15 min Patient Chief Complaint: I am feeling little better.' Problems Identified/Issues Discussed: Patient seen and evaluated, chart reviewed and discussed with the nurse. As per the staff, patient is still talking to herself and walking back and forth in the hallways. When asked who is she talking to? she said, 'I am praying for the people who are in the [place] hurricane.' She remained disorganized and internally preoccupied and responding to internal stimuli. Patient has wrapped a sheet around her face and body. She reports some improvement in hearing voices but remained guarded about the details. Patient still appears paranoid and delusional. Patient remained depressed, isolated, confined and withdrawn. She is taking medication and denies any side effects. Supportive therapy and psychoeducation were given. Medication Change: Yes (increase zoloft) Medical Record Reviewed: Yes Mental Status Examination - Cognitive Function Orientation: Person, Place, Situation, Time Memory: Intact Attention: WNL Concentration: Poor Association: Loose Fund of Knowledge: Poor - Mood Mood: Depressed, Anxious - Affect Affect: Constricted, Depressed - Speech Speech: Soft - Formal Thought Process Formal Thought Process: Hallucinations, Delusions, Paranoia, Loosening of associations - Suicidal Ideation Suicidal Ideation: No - Homicidal Ideation Homicidal Ideation: No Goal/Treatment Plan - Goal/Treatment Plan Need for Continued Stay: Discharge may exacerbated symptoms, Severe functional impairment Progress Toward Problem(s) and Goals/Treatment Plan: Schizoaffective disorder bipolar type CBT Psychoeducation Supportive therapy, group therapy, individual therapy Risperdal 2 mg by mouth daily Risperdal 3 mg PO QHS Depakote 250 mg by mouth twice a day Zoloft 100 mg daily Seroquel 50 mg Trazodone 50 mg by mouth daily at bedtime - Smoking Cessation Smoking Cessation Initiated: No
[2016-11-29] MEDS: Pantoprazole 40 mg EC Tab PO SCH (09:35)
--- NOTE | 2016-11-29 09:54 | PCM.PYCHPN ---
Psychiatric Progress Note - Psychiatric Progress Note Patient seen today, length of contact: 15 min Patient Chief Complaint: I am feeling little better.' Problems Identified/Issues Discussed: Patient seen and evaluated, chart reviewed and discussed with the nurse. Pt is still found talking to herself and making a one way conversation. She is still walking back and forth in the hallways. She appears somewhat organized and less internally preoccupied than before. She is still walking with a sheet wrapped around her face and body. She reports some improvement in hearing voices but remained guarded about the details. Patient still appears paranoid and delusional. Patient remained depressed, isolated, confined and withdrawn. She is taking medication and denies any side effects. Supportive therapy and psychoeducation were given. Medication Change: Yes (increase zoloft) Medical Record Reviewed: Yes Mental Status Examination - Cognitive Function Orientation: Person, Place, Situation, Time Memory: Intact Attention: WNL Concentration: Poor Association: Loose Fund of Knowledge: Poor - Mood Mood: Depressed, Anxious - Affect Affect: Constricted, Depressed - Speech Speech: Soft - Formal Thought Process Formal Thought Process: Hallucinations, Delusions, Paranoia, Loosening of associations - Suicidal Ideation Suicidal Ideation: No - Homicidal Ideation Homicidal Ideation: No Goal/Treatment Plan - Goal/Treatment Plan Need for Continued Stay: Discharge may exacerbated symptoms, Severe functional impairment Progress Toward Problem(s) and Goals/Treatment Plan: Schizoaffective disorder bipolar type CBT Psychoeducation Supportive therapy, group therapy, individual therapy Risperdal 2 mg by mouth daily Increase Risperdal 4 mg PO QHS Increase Depakote to 500 mg by mouth twice a day Zoloft 100 mg daily Seroquel 50 mg Trazodone 50 mg by mouth daily at bedtime - Smoking Cessation Smoking Cessation Initiated: No
[2016-11-30] MEDS: Pantoprazole 40 mg EC Tab PO SCH (09:34)
--- NOTE | 2016-11-30 17:25 | PCM.PYCHPN ---
Psychiatric Progress Note - Psychiatric Progress Note Patient seen today, length of contact: 15 min Patient Chief Complaint: Feeling much better Problems Identified/Issues Discussed: Patient seen. Chart reviewed. Case discussed with staff. Issues related to illness and treatment were discussed with the patient. Reported compliant with treatment with no adverse affects. Tolerating treatment very well. Reported she is feeling better and is more social. Also attending groups. Staff also confirmed the above. At the time of evaluation, patient was awake alert oriented 3, had no delusions , no auditory or visual hallucinations, no suicidal ideations or homicidal ideations. Medical Problems: None reported Diagnostic Results: Reviewed DSM 5 Symptoms Update: Improving with treatment Medication Change: No Medical Record Reviewed: Yes Mental Status Examination - Cognitive Function Orientation: Person, Place, Situation, Time Memory: Intact Attention: WNL Concentration: WNL Association: WN Fund of Knowledge: [facility] Decription of patient's judgement and insights: Fair - Mood Mood: Depressed (Much less than before) - Affect Affect: Depressed - Speech Speech: Soft - Formal Thought Process Formal Thought Process: No Impairment Psychotic Thoughts and Behaviors: None - Suicidal Ideation Suicidal Ideation: No - Homicidal Ideation Homicidal Ideation: No Goal/Treatment Plan - Goal/Treatment Plan Need for Continued Stay: Remain at risks for inpatient hospitalization, Discharge may exacerbated symptoms, Severe functional impairment Progress Toward Problem(s) and Goals/Treatment Plan: Patient education Supportive therapy Continue treatment as before Estimated Date of D/C: 12/03/16 - Smoking Cessation Smoking Cessation Initiated: No
[2016-12-01] MEDS: Pantoprazole 40 mg EC Tab PO SCH (09:13)
--- NOTE | 2016-12-01 14:53 | PCM.PYCHPN ---
Psychiatric Progress Note - Psychiatric Progress Note Patient seen today, length of contact: 15 min Patient Chief Complaint: I am Feeling much better Problems Identified/Issues Discussed: Patient seen. Chart reviewed. Case discussed with staff. Issues related to illness and treatment were discussed with the patient. Reported compliant with treatment with no adverse affects. Tolerating treatment very well. Reported she is feeling better and is more social. Also attending groups. Staff also confirmed the above. At the time of evaluation, patient was awake alert oriented 3, had no delusions , no auditory or visual hallucinations, no suicidal ideations or homicidal ideations. Medical Problems: None reported Diagnostic Results: Reviewed DSM 5 Symptoms Update: Improving with treatment Medication Change: No Medical Record Reviewed: Yes Mental Status Examination - Cognitive Function Orientation: Person, Place, Situation, Time Memory: Intact Attention: WNL Concentration: WNL Association: [facility] Fund of Knowledge: [facility] Decription of patient's judgement and insights: Fair - Mood Mood: Neutral - Affect Affect: Other (Appropriate) - Speech Speech: Soft - Formal Thought Process Formal Thought Process: No Impairment Psychotic Thoughts and Behaviors: None - Suicidal Ideation Suicidal Ideation: No - Homicidal Ideation Homicidal Ideation: No Goal/Treatment Plan - Goal/Treatment Plan Need for Continued Stay: Remain at risks for inpatient hospitalization, Discharge may exacerbated symptoms, Severe functional impairment Progress Toward Problem(s) and Goals/Treatment Plan: Patient education Supportive therapy Continue treatment as before Estimated Date of D/C: 12/03/16 - Smoking Cessation Smoking Cessation Initiated: No
[2016-12-01] MEDS: Divalproex 500 mg ER Tab PO SCH (17:24)
[2016-12-02] MEDS: Divalproex 500 mg ER Tab PO SCH ×2 (09:20→17:30)
[2016-12-02] MEDS: Pantoprazole 40 mg EC Tab PO SCH (09:20)
--- NOTE | 2016-12-02 10:21 | PCM.BM ---
<Ruma Richard - Last Filed: 12/02/16 10:20> Treatment Plan Problems - Problems identified on initial assessmt Depression Date Initiated: 11/23/16 Time Initiated: 19:19 Assessment reference: NA Status: Active Treatment assets and liabiliti Patient Assests: adapts well, resourceful, ADL independent, physically healthy, good past tx response - Milieu Protocol Maintain good personal hygiene: daily Encourage regular showers, daily Remind patient to perform daily oral care Conduct patient checks and document Observation sheet: Q15 minutes Maintain personal safety: every shift Educate patient to report safety concerns to staff, every shift Monitor environment for contraband/sharps Medication safety: Monitor for expected outcome, potential side effects: every shift, Assess barriers to learning: every shift, Assess readiness for medication education: every shift Milieu Narrative: Patient education Supportive therapy Continue treatment as before Family Contact Family involvement: Family/SO is involved Family contact name: Rafael Fung-mother Family contacted how many times per week?: 2 - Goals for Treatment Patient goals for treatment: "I don't know." Discharge/Continuing Care - Education Needs Education Needs: Patient Medication, Patient Coping Skills - Discharge Discharge Criteria: Tolerates medication w/o severe side effects, Free of Suicidal thoughts Discharge to:: Home, With Family - Treatment Team Participation Patient/Family/SO Statement: Patient education Supportive therapy Continue treatment as before Discussed with Family/SO: Yes Was Patient/Family/SO present at Treatment Team Meeting: Yes Treatment Plan Review Patient participation: Yes Family/SO/Caregiver participation: No - Problem Depression Date Initiated: 12/02/16 Time Initiated: 10:21 Progress toward outcomes: improved - Discharge / Continuing Care Discharge to:: Home, With Family Behavioral Health Services: Partial hospital Health Needs: Follow up care/test, Medications/Rx <Carrie Davis - Last Filed: 12/03/16 07:52> Treatment assets and liabiliti Patient Assests: cooperative <Mikayla Pino - Last Filed: 12/03/16 13:00> - Diagnosis (1) Bipolar 1 disorder Status: Acute Interventions: 12/03/16 13:00 * Assess/adjust medications daily and /or as needed * See patient on an individual basis 7x/week to assess symptoms of depression * Monitor for side effects & effectiveness of medications * * Assess/adjust medications daily and /or as needed * See patient on an individual basis 7x/week to assess level of manic behaviors and stability * Discuss risks, benefits, side effects and alternatives of medications *
--- NOTE | 2016-12-02 15:40 | PCM.PYCHPN ---
Psychiatric Progress Note - Psychiatric Progress Note Patient seen today, length of contact: 15 min Patient Chief Complaint: "I'm ready to leave" Problems Identified/Issues Discussed: Pt is seen, chart reviewed, case discussed with staff. Pt is compliant with medications and reports no side effects. Pt reports that she is sleeping well. She denies SI and hallucinations. Pt reports that she would like to be discharged today but agees to wait until Friday or Friday. She is encouraged to socialize with other patients in the meantime. Support and psychoeducation given, CBT and TX used briefly. After care discussed. Medication Change: No Medical Record Reviewed: Yes Mental Status Examination - Cognitive Function Orientation: Person, Place, Situation, Time Memory: Intact Attention: WNL Concentration: WNL Association: WNL Fund of Knowledge: WNL - Mood Mood: Neutral - Affect Affect: Blunted - Speech Speech: Appropriate - Formal Thought Process Formal Thought Process: No Impairment - Suicidal Ideation Suicidal Ideation: No - Homicidal Ideation Homicidal Ideation: No Goal/Treatment Plan - Goal/Treatment Plan Need for Continued Stay: Remain at risks for inpatient hospitalization, Discharge may exacerbated symptoms Progress Toward Problem(s) and Goals/Treatment Plan: Schizoaffective disorder, bipolar type Support and psychoeducation daily Attend groups and activities daily Continue medications as prescribed Estimated Date of D/C: 12/03/16 - Smoking Cessation Smoking Cessation Initiated: No
[2016-12-03 07:44] VITALS: RESP 20; O2SAT 99
[2016-12-03] MEDS: Pantoprazole 40 mg EC Tab PO SCH (09:27)
[2016-12-03] MEDS: Divalproex 500 mg ER Tab PO SCH ×2 (09:27→17:56)
--- NOTE | 2016-12-03 12:34 | PCM.PYCHPN ---
Psychiatric Progress Note - Psychiatric Progress Note Patient seen today, length of contact: 15 min Patient Chief Complaint: I am Feeling much better Problems Identified/Issues Discussed: Patient seen. Chart reviewed. Case discussed with staff. Issues related to illness and treatment were discussed with the patient. Reported compliant with treatment with no adverse affects. Tolerating treatment very well. Reported she is feeling better and is more social. Also attending groups. Staff also confirmed the above. At the time of evaluation, patient was awake alert oriented 3, had no delusions , no auditory or visual hallucinations, no suicidal ideations or homicidal ideations. Medical Problems: None reported Diagnostic Results: Reviewed DSM 5 Symptoms Update: Improving with treatment Medication Change: No Medical Record Reviewed: Yes Mental Status Examination - Cognitive Function Orientation: Person, Place, Situation, Time Memory: Intact Attention: WNL Concentration: WNL Association: [facility] Fund of Knowledge: [facility] Decription of patient's judgement and insights: Fair - Mood Mood: Neutral - Affect Affect: Other (Appropriate) - Speech Speech: Appropriate - Formal Thought Process Formal Thought Process: No Impairment Psychotic Thoughts and Behaviors: None - Suicidal Ideation Suicidal Ideation: No - Homicidal Ideation Homicidal Ideation: No Goal/Treatment Plan - Goal/Treatment Plan Need for Continued Stay: Remain at risks for inpatient hospitalization, Discharge may exacerbated symptoms, Severe functional impairment Progress Toward Problem(s) and Goals/Treatment Plan: Patient education Supportive therapy Continue treatment as before We will go to [facility] Estimated Date of D/C: 12/04/16 - Smoking Cessation Smoking Cessation Initiated: No
[2016-12-04 07:36] VITALS: BP 98/55; PULSE 48; TEMP 98.3
[2016-12-04] MEDS: Divalproex 500 mg ER Tab PO SCH (09:35)
[2016-12-04] MEDS: Pantoprazole 40 mg EC Tab PO SCH (09:35)
--- NOTE | 2016-12-04 12:37 | PCM.PYCHDC ---
Mental Status Examination - Mental Status Examination Orientation: Person, Place, Situation, Time Memory: Intact Mood: Neutral Affect: Other (Appropriate) Speech: Appropriate Attention: WNL Concentration: WNL Association: WNL Fund of Knowledge: WNL Formal Thought Process: No Impairment Description of patient's judgement and insight: Fair Psychotic Thoughts and Behaviors: None Suicidal Ideation: No Current Homicidal Ideation?: No Discharge Summary - Discharge Note Reason for Hospitalization: Bipolar disorder Laboratory Data: Reviewed Consultations:: List each consultation separately and include: 1. Reason for request. 2. Findings. 3. Follow-up Summary of Hospital Course include:: 1. Description of specific treatment plan utilized for patients during their course of treatmen. 2. Summarize the time- course for resolution of acute symptoms and/or regressed behaviors. 3. Describe issues identified and worked on during hospitalization. 4. Describe medication utilized. 5. Describe medical problems identified and treated. 6. Reassessment of suicide risk Summary of Hospital Course: The pt is a 21 yr old female, Luxembour[place] speaking, who presents to [facility] due to SI and auditory hallucination. As per the ED note, patient was very disorganized and internally preoccupied and was responding to internal stimuli. The pt was not cooperative and very vague to answering questions. The pt reported that her blood is infected. The pt reported suicidal ideation without any plan. She also reported auditory hallucinations, hearing demons, but did not want to discuss or elaborate further regarding what the demons were stating. The pt was recently at [facility] approximately 2 weeks ago as the pt took a knife to harm herself, but did not follow through. The pt is linked to [facility], but the pt denies attending and is non-complaint with medication. Patient remained guarded, evasive, and paranoid in the unit. She still reporting auditory and visual hallucinations and remained delusional. She also appears very confused and cannot recall the names of her medications. Past medical history None reported During her stay patient was started on Depakote, Risperdal, sertraline and trazodone. Patient will also started on other when necessary medications. Patient had a group therapy and individual therapy. With all above treatment, patient started feeling better. Today patient was stable and ready for discharge. Patient was discharged in a stable condition. At the time of evaluation and discharge, patient was awake alert oriented 3, had no delusions, no auditory or visual hallucinations, no suicidal ideations or homicidal ideations. Patient was discharged in a stable condition. - Final Diagnosis (DSM 5) Condition upon Discharge: GUARDED Disposition: HOME/ ROUTINE Follow-up Treatment Plan: We will go to [facility] IOP Prescriptions/Medication Reconciliation: Divalproex Sodium [Divalproex Sodium ER] 500 mg PO BID #60 tab.er.24h risperiDONE [RisperDAL Tab] 2 mg PO HS #30 tab Sertraline [Zoloft] 100 mg PO DAILY #30 tab traZODone [Desyrel] 100 mg PO HS PRN #30 tab PRN Reason: Insomnia - Smoking Cessation Smoking Cessation Medication prescribed: No Reason for not providing: Patient doesn't smoke - Antipsychotic Medications Pt discharged on 2 or more routine antipsychotic medications: No
== END 2016-12-04 10:35 | disposition home or self-care (01) | DRG 430 ==
LOC: C.ER 10:44 → C.5E 16:52
PROVIDERS: ADMIT Psychiatry & Neurology Psychiatry; ATTEND Psychiatry & Neurology Psychiatry
PROC: GZHZZZZ Group Psychotherapy (ICD-10-PCS; principal; 2016-11-24)
PROC: GZ58ZZZ Individual Psychotherapy, Cognitive-Behavioral (ICD-10-PCS; 2016-11-24)
PROC: GZ56ZZZ Individual Psychotherapy, Supportive (ICD-10-PCS; 2016-11-24)
DX: F25.0 Schizoaffective disorder, bipolar type (principal); R45.851 Suicidal ideations; F41.9 Anxiety disorder, unspecified; F32.9 Major depressive disorder, single episode, unspecified; G47.00 Insomnia, unspecified

== ENCOUNTER 2017-04-26 11:19 | Emergency (ER) | payer MEDICAID ==
[2017-04-26 11:29] VITALS: RESP 16; TEMP 98.2; O2SAT 98
[2017-04-26] MEDS ORDERED: Aluminum Hydroxide/Magnesium Hydroxide Susp (30 mL) PO STA (11:46)
--- NOTE | 2017-04-26 11:48 | C.PDOC ---
History Of Present Illness 22 years old female presents to ED with complaints of epigastric abdominal pain that began last week. Patient states the pain is on and off. She also reports constipation for 3 days, but patient had a small bowel movement this morning. Denies nausea, vomiting, fever or urinary symptoms. Time Seen by Provider: 04/26/17 11:36 Chief Complaint (Nursing): Abdominal Pain History Per: Patient History/Exam Limitations: no limitations Onset/Duration Of Symptoms: Days (7) Current Symptoms Are (Timing): Still Present Location Of Pain/Discomfort: Epigastric Quality Of Discomfort: Unable To Describe Associated Symptoms: Constipation. denies: Fever, Chills, Nausea, Vomiting, Diarrhea, Urinary Symptoms Exacerbating Factors: None Alleviating Factors: None Recent travel outside of the [place]: No Past Medical History Reviewed: Historical Data, Nursing Documentation, Vital Signs Vital Signs: Last Vital Signs Temp 98.2 F 04/26/17 11:27 Pulse 85 04/26/17 14:11 Resp 16 04/26/17 14:11 BP 112/68 04/26/17 14:11 Pulse Ox 98 04/26/17 14:11 - Medical History PMH: Anxiety, Bipolar Disorder, Depression, Schizophrenia - [facility] Procedures FAMILY PSYCHOTHERAPY (05/17/16) GROUP PSYCHOTHERAPY (11/23/16) INDIVIDUAL PSYCHOTHERAPY, COGNITIVE-BEHAVIORAL (11/23/16) INDIVIDUAL PSYCHOTHERAPY, SUPPORTIVE (11/23/16) MEDICATION MANAGEMENT (05/17/16) PSYCHIA INTERV/EVAL NEC (08/23/14) Family History: States: Unknown Family Hx - Social History Hx Tobacco Use: No Hx Alcohol Use: No Hx Substance Use: No - Immunization History Hx Tetanus Toxoid Vaccination: No Hx Influenza Vaccination: No Hx Pneumococcal Vaccination: No Review Of Systems Constitutional: Negative for: Fever, Chills Cardiovascular: Negative for: Chest Pain Gastrointestinal: Positive for: Abdominal Pain (epigastric), Constipation. Negative for: Nausea, Vomiting, Diarrhea Genitourinary: Negative for: Dysuria, Frequency, Hematuria Neurological: Negative for: Weakness, Numbness Physical Exam - Physical Exam Appears: Non-toxic, No Acute Distress Skin: Normal Color, Warm, Dry, No Pale, No Rash Head: Atraumatic, Normacephalic Eye(s): bilateral: Normal Inspection, EOMI Oral Mucosa: Moist Neck: Normal ROM Chest: Symmetrical, No Tenderness Cardiovascular: Rhythm Regular Respiratory: Normal Breath Sounds, No Decreased Breath Sounds, No Rales, No Rhonchi, No Wheezing Gastrointestinal/Abdominal: Soft, No Tenderness, No Distention, No Guarding, No Rebound Back: Normal Inspection, No CVA Tenderness Extremity: Bilateral: Atraumatic, Normal Color And Temperature, Normal ROM Neurological/Psych: Oriented x3, Normal Speech Gait: Steady ED Course And Treatment O2 Sat by Pulse Oximetry: 98 (RA) Pulse Ox Interpretation: Normal - Other Rad abdomen X-Ray: Viewed By Me, Read By Radiologist (Bruna Pino MD) Interpretation: IMPRESSION: Mild constipation - CT Scan/US abdomen Other Rad Studies (CT/US): Read By Radiologist, Radiology Report Reviewed CT/US Interpretation: Creator : Bruna Pino MD. Dictator : Bruna Pino MD. Analytical Technician : Pay Station Department Manager : Bruna Pino MD. Approver2 : Report Date : 04/26/2017 13:38:10. My Comment : . HISTORY: pain and constipation. COMPARISON: None. TECHNIQUE: Sonographic evaluation of the abdomen. FINDINGS: LIVER: Measures 15.4 cm. Normal echogenicity of the liver parenchyma. No mass. No intrahepatic bile duct dilatation. GALLBLADDER: Unremarkable. No gallstones. COMMON BILE DUCT: Measures 3 mm. No stones. No dilatation. PANCREAS: Unremarkable as visualized. No mass. No ductal dilatation. RIGHT KIDNEY: Measures 10.5 x 3.6 x 4.2cm. Normal echogenicity. No calculus, mass, or hydronephrosis. LEFT KIDNEY: Measures 10.4 x 4.6 x 4.5cm. Normal echogenicity. No calculus, mass, or hydronephrosis. SPLEEN: Normal in size and contour. No mass. AORTA: No aneurysmal dilatation. IVC: Unremarkable. OTHER FINDINGS: None. IMPRESSION: No evidence of cholelithiasis or cholecystitis. No ultrasound evidence of nephrolithiasis or hydronephrosis. Medical Decision Making Medical Decision Making: Ordered US of abdomen, xray of abdomen, urine culture urinalysis. Administered Pepcid and Maalox. Diagnostics reviewed showing constipation. Patient remained well in bed in no acute distress and without fever. She was observed to eat sandwich without any problem and had no pain. She is stable for discharge Disposition Counseled Patient/Family Regarding: Diagnosis, Need For Followup, Rx Given - Disposition Disposition: HOME/ ROUTINE Disposition Time: 13:41 Condition: GOOD Additional Instructions: Vaya a stubbs mdico o la clnica en 2-5 macias sin falta, para mas evaluacin. [place] los medicamentos brian indicado. Volver a la steffany de emergencia en cualquier momento si los sntomas persisten o empeoran. Prescriptions: Docusate [Colace] 100 mg PO TID PRN #30 cap PRN Reason: Constipation Famotidine [Pepcid] 20 mg PO DAILY #20 tab Instructions: Constipation in Adults Forms: [employer] (South Korean) Print Language: KOREAN - POA Present On Arrival: None - Clinical Impression Clinical Impression: Abdominal pain, Constipation - PA / REDUCTION PLANT SUPERVISOR / Resident Statement MD/DO has reviewed & agrees with the documentation as recorded. - Scribe Statement The provider has reviewed the documentation as recorded by the Laishaibkey Rocha All medical record entries made by the Laishaibkey were at my direction and personally dictated by me. I have reviewed the chart and agree that the record accurately reflects my personal performance of the history, physical exam, medical decision making, and the department course for this patient. I have also personally directed, reviewed, and agree with the discharge instructions and disposition.
[2017-04-26] MEDS ORDERED: Aluminum Hydroxide/Magnesium Hydroxide Susp (30 mL) ONE (11:55)
[2017-04-26 12:14] LABS: SQUAMOUS EPITHIAL 7 /hpf (0-5); URINE BACTERIA RARE (<OCC); URINE BILIRUBIN NEGATIVE (NEGATIVE); URINE BLOOD NEGATIVE (NEGATIVE); URINE CLARITY Hazy (Clear); URINE COLOR Yellow (YELLOW); URINE GLUCOSE (UA) NORMAL (Normal); URINE LEUKOCYTE ESTERASE NEG Leu/uL (Negative); URINE NITRATE NEGATIVE (NEGATIVE); URINE PROTEIN NEGATIVE (NEGATIVE); URINE UROBILINOGEN NORMAL mg/dL (0.2-1.0)
[2017-04-26 12:15] LABS: HCG,QUALITATIVE URINE NEGATIVE (NEGATIVE)
--- NOTE | 2017-04-26 13:40 | US ---
HISTORY: pain and constipation COMPARISON: None. TECHNIQUE: Sonographic evaluation of the abdomen. FINDINGS: LIVER: Measures 15.4 cm. Normal echogenicity of the liver parenchyma. No mass. No intrahepatic bile duct dilatation. GALLBLADDER: Unremarkable. No gallstones. COMMON BILE DUCT: Measures 3 mm. No stones. No dilatation. PANCREAS: Unremarkable as visualized. No mass. No ductal dilatation. RIGHT KIDNEY: Measures 10.5 x 3.6 x 4.2cm. Normal echogenicity. No calculus, mass, or hydronephrosis. LEFT KIDNEY: Measures 10.4 x 4.6 x 4.5cm. Normal echogenicity. No calculus, mass, or hydronephrosis. SPLEEN: Normal in size and contour. No mass. AORTA: No aneurysmal dilatation. IVC: Unremarkable. OTHER FINDINGS: None. IMPRESSION: No evidence of cholelithiasis or cholecystitis. No ultrasound evidence of nephrolithiasis or hydronephrosis.
[2017-04-26 14:12] VITALS: BP 112/68; PULSE 85
--- NOTE | 2017-04-26 14:13 | RAD ---
HISTORY: abd pain constipation COMPARISON: No prior. FINDINGS: BOWEL: Mild constipation. No obstruction. No free air. BONES: Normal. OTHER FINDINGS: None. IMPRESSION: Mild constipation
== END 2017-04-26 14:11 | disposition home or self-care (01) ==
LOC: C.ER 11:19
DX: R10.9 Unspecified abdominal pain (principal); K59.00 Constipation, unspecified

== ENCOUNTER 2017-04-29 18:24 | Inpatient (IN) | payer MEDICAID ==
--- NOTE | 2017-04-29 18:55 | C.PDOC ---
History Of Present Illness 22 yr old female transferred to ER from [facility] for psych admission. Patient has history of schizophrenia disorder. Denies any phsyical complaints, SI or HI. Time Seen by Provider: 04/29/17 18:50 Chief Complaint (Nursing): Psychiatric Evaluation History Per: Patient, Other History/Exam Limitations: no limitations Suicide/Self Injury Attempted (Context): None Past Medical History Reviewed: Historical Data, Nursing Documentation, Vital Signs Vital Signs: Last Vital Signs Temp 98.1 F 04/29/17 19:14 Pulse 66 04/29/17 19:14 Resp 16 04/29/17 19:35 BP 101/59 L 04/29/17 19:14 Pulse Ox 99 04/29/17 19:14 - Medical History PMH: Anxiety, Bipolar Disorder, Depression, Schizophrenia - [facility] Procedures FAMILY PSYCHOTHERAPY (05/17/16) GROUP PSYCHOTHERAPY (11/23/16) INDIVIDUAL PSYCHOTHERAPY, COGNITIVE-BEHAVIORAL (11/23/16) INDIVIDUAL PSYCHOTHERAPY, SUPPORTIVE (11/23/16) MEDICATION MANAGEMENT (05/17/16) PSYCHIA INTERV/EVAL NEC (08/23/14) Family History: States: No Known Family Hx - Social History Hx Tobacco Use: No Hx Alcohol Use: No Hx Substance Use: No - Immunization History Hx Tetanus Toxoid Vaccination: No Hx Influenza Vaccination: No Hx Pneumococcal Vaccination: No Review Of Systems Except As Marked, All Systems Reviewed And Found Negative. Cardiovascular: Negative for: Chest Pain Respiratory: Negative for: Shortness of Breath Gastrointestinal: Negative for: Nausea, Vomiting Psych: Negative for: Suicidal ideation Physical Exam - Physical Exam Appears: Non-toxic, No Acute Distress Skin: Warm, Dry, No Rash Head: Atraumatic, Normacephalic Eye(s): bilateral: Normal Inspection, PERRL, EOMI Oral Mucosa: Moist Cardiovascular: Rhythm Regular, No Murmur Respiratory: Normal Breath Sounds, No Rales, No Rhonchi, No Wheezing Neurological/Psych: Oriented x3, Normal Speech, Normal Motor ED Course And Treatment O2 Sat by Pulse Oximetry: 98 (RA) Pulse Ox Interpretation: Normal Disposition - Disposition Disposition: HOSPITALIZED Disposition Time: 18:50 Condition: STABLE - Clinical Impression Clinical Impression: Schizoaffective disorder - Scribe Statement The provider has reviewed the documentation as recorded by the Yariel Roca Provider Attestation: All medical record entries made by the Scribe were at my direction and personally dictated by me. I have reviewed the chart and agree that the record accurately reflects my personal performance of the history, physical exam, medical decision making, and the department course for this patient. I have also personally directed, reviewed, and agree with the discharge instructions and disposition.
--- NOTE | 2017-04-29 19:34 | PCM.BM ---
<Shy Toure - Last Filed: 04/29/17 19:33> Treatment Plan Problems - Problems identified on initial assessmt Delusions Date Initiated: 04/29/17 Time Initiated: 19:34 Assessment reference: NA Status: Active Treatment assets and liabiliti Patient Assests: cooperative, self-reliant, ADL independent Patient Liabilities: poor support system, other (non compliant with medications) - Milieu Protocol Maintain good personal hygiene: daily Encourage regular showers, daily Remind patient to perform daily oral care Conduct patient checks and document Observation sheet: Q15 minutes Maintain personal safety: every shift Educate patient to report safety concerns to staff, every shift Monitor environment for contraband/sharps Medication safety: Monitor for expected outcome, potential side effects: every shift, Assess barriers to learning: every shift, Assess readiness for medication education: every shift <Ruma Richard - Last Filed: 04/30/17 10:53> Family Contact Family involvement: Family/SO is involved Family contact: Patient agrees to contact - Goals for Treatment Patient goals for treatment: "I don't know." Discharge/Continuing Care - Education Needs Education Needs: Patient Medication, Patient Coping Skills - Discharge Discharge Criteria: Tolerates medication w/o severe side effects, Reduction of target symptoms Discharge to:: Home, With Family - Treatment Team Participation Discussed with Family/SO: No Was Patient/Family/SO present at Treatment Team Meeting: Yes <Angela Bliss - Last Filed: 04/30/17 10:54> - Diagnosis (1) Schizophrenia Status: Acute Interventions: 04/30/17 10:54 * Assess/adjust medications daily and /or as needed * See patient on an individual basis 7x/week to assess status of hallucinations * Discuss risks, benefits, side effects and alternatives of medications *
[2017-04-30 00:57] VITALS: O2SAT 98
--- NOTE | 2017-04-30 10:12 | PCM.PSYCH ---
Initial Psychiatric Evaluation - Initial Psychiatric Evaluation Type of Admission: Voluntary Legal Status: Capacity Chief Complaint (in patient's own words): I was hearing voices.' History of Present Illness and Precipitating Events: This is a 22 yo female, Single and unemployed, who currently lives with her mother, was escorted to the ED by the police, when they found her disheveled and unkempt and wandering on the streets. Patient has a long history of schizoaffective disorder. Patient has history of multiple inpatient psychiatric admissions, last discharged from [facility] , almost 6 months ago. Patient remained disorganized and internally preoccupied throughout the interview. Patient appeared paranoid and delusional. She reports of hearing a lot of voices but could not elaborate. She reports of seeing shadows and demons. She remained partially mute and was looking around suspiciously during interview. Patient reports that she stopped taking her medications. Patient denies any drinking or any substance abuse. Per staff, since last night she is pacing back and forth in the hallways and talking to herself continuously and remained disheveled, unkempt and disorganized. Past medical history: None reported Current Medications: Active Medications Generic Name Dose Route Start Last Admin Trade Name Freq PRN Reason Stop Dose Admin Acetaminophen 650 mg 04/29/17 20:10 Tylenol 325mg Tab PO Q6 PRN Fever >100.4 F Benztropine Mesylate 1 mg 04/29/17 22:00 04/29/17 21:58 Cogentin PO Not Given HS FRANKY Hydroxyzine HCl 25 mg 04/29/17 20:12 Atarax PO Q6 PRN Agitation Lorazepam 1 mg 04/29/17 20:10 04/30/17 09:38 Ativan PO 1 mg Q6 PRN Administration Anxiety Risperidone 1 mg 04/29/17 22:00 04/29/17 21:58 Risperdal Tab PO Not Given HS FRANKY Trazodone HCl 50 mg 04/29/17 22:00 04/29/17 21:58 Desyrel PO Not Given HS FRANKY Past Psychiatric History - Past Psychiatric History Previous Treatment History: Inpatient Pertinent Medical Hx (Current Medical&Sleep Prob, Allergies): Allergies Allergy/AdvReac Type Severity Reaction Status Date / Time No Known Allergies Allergy Verified 04/29/17 18:54 Docusate [Colace] 100 mg PO TID PRN #30 cap 04/26/17 Famotidine [Pepcid] 20 mg PO DAILY #20 tab 04/26/17 Review of Systems - Review of Systems All systems: reviewed and no additional remarkable complaints except - Psychiatric Psychiatric: Anxiety, Auditory Hallucinations, Paranoia, Visual Hallucinations Mental Status Examination - Personal Presentation Personal Presentation: Looks older than stated age - Affect Affect: Constricted, Flat - Motor Activity Motor Activity: Psychomotor Agitation - Reliability in Providing Information Reliability in Providing Information: Poor, due to alteration in thoughts, Poor , due to altered mood - Speech Speech: Disorganized - Mood Mood: Anxious - Formal Thought Process Formal Thought Process: Hallucinations, Delusions, Paranoia, Loosening of associations - Hallucinations/Delusions Hallucinations: Visual, Auditory Delusions: Persecution - Obsessions/Compulsions Obsessions: No Compulsions: No - Cognitive Functions Orientation: Person, Place, Situation, Time Sensorium: Alert Attention/Concentration: Attentive Abstract Thinking: [place] Estimate of Intelligence: Below average Judgement: Imparied, as evidence by: Poor judgement, Imparied, as evidence by: Lack of insight into illness - Risk Risk: Diminished functioning - Strength & Assets Inventory Strength & Assets Inventory: Family support DSM 5 DX - DSM 5 DSM 5 Diagnosis: Schizophrenia paranoid type r/o Schizoaffective disorder depressive type - Recommended/Plan of Treatment Treatment Recommendations and Plan of Treatment: Schizophrenia paranoid type r/o Schizoaffective disorder depressive type CBT Psychoeducation Supportive therapy, group therapy, individual therapy Risperdal 1 mg PO QHS Cogentin 1 mg PO QHS Trazodone 50 mg by mouth daily at bedtime PRN meds - Smoking Cessation Smoking Cessation Initiated: No
--- NOTE | 2017-05-01 10:11 | PCM.PYCHPN ---
Psychiatric Progress Note - Psychiatric Progress Note Patient seen today, length of contact: 16 min Patient Chief Complaint: I am still hearing voices.' Problems Identified/Issues Discussed: Patient seen and evaluated, chart reviewed and discussed with the nurse. Patient remained disorganized and internally preoccupied. Patient remained isolated, confined and withdrawn and still reports of hearing voices. Patient still appears paranoid and delusional. She is taking medication and denies any side effects. She needs more time for stabilization. Supportive therapy and psychoeducation were given. Medication Change: Yes (D/C Risperdal, Start Haldol) Medical Record Reviewed: Yes Mental Status Examination - Cognitive Function Orientation: Person, Place, Situation, Time Memory: Intact Attention: Poor Concentration: Poor Association: Loose Fund of Knowledge: Poor - Mood Mood: Anxious - Affect Affect: Constricted, Flat - Formal Thought Process Formal Thought Process: Hallucinations, Delusions, Paranoia, Loosening of associations - Suicidal Ideation Suicidal Ideation: No - Homicidal Ideation Homicidal Ideation: No Goal/Treatment Plan - Goal/Treatment Plan Need for Continued Stay: Severe depression anxiety, Severe functional impairment Progress Toward Problem(s) and Goals/Treatment Plan: Schizophrenia paranoid type r/o Schizoaffective disorder depressive type CBT Psychoeducation Supportive therapy, group therapy, individual therapy d/c Risperdal 1 mg PO QHS Cogentin 1 mg PO QHS Trazodone 50 mg by mouth daily at bedtime PRN meds Start Haldol 5 mg pO BID - Smoking Cessation Smoking Cessation Initiated: No
--- NOTE | 2017-05-02 12:54 | PCM.PYCHPN ---
Psychiatric Progress Note - Psychiatric Progress Note Patient seen today, length of contact: 15 min Patient Chief Complaint: I am still hearing voices.' Problems Identified/Issues Discussed: Patient seen and evaluated, chart reviewed and discussed with the nurse. As per the staff patient is still talking to herself and still pacing back and forth in the hallways. However she has started coming out of her room. She still appears disorganized and internally preoccupied. She is not talking to anyone and she remained isolated, confined and withdrawn. She still reports of hearing voices and she still appears paranoid and delusional. She is taking medication and denies any side effects. She needs more time for stabilization. Supportive therapy and psychoeducation were given. Medication Change: Yes (Increase Haldol) Medical Record Reviewed: Yes Mental Status Examination - Cognitive Function Orientation: Person, Place, Situation, Time Memory: Intact Attention: Poor Concentration: Poor Association: Loose Fund of Knowledge: Poor - Mood Mood: Anxious - Affect Affect: Constricted, Flat - Speech Speech: Soft - Formal Thought Process Formal Thought Process: Hallucinations, Delusions, Paranoia, Loosening of associations - Suicidal Ideation Suicidal Ideation: No - Homicidal Ideation Homicidal Ideation: No Goal/Treatment Plan - Goal/Treatment Plan Need for Continued Stay: Severe depression anxiety, Severe functional impairment Progress Toward Problem(s) and Goals/Treatment Plan: Schizophrenia paranoid type r/o Schizoaffective disorder depressive type CBT Psychoeducation Supportive therapy, group therapy, individual therapy Haldol 10 mg by mouth twice a day Cogentin 1 mg by mouth twice a day Klonopin 1 mg by mouth twice a day Trazodone 50 mg by mouth daily at bedtime PRN meds - Smoking Cessation Smoking Cessation Initiated: No
--- NOTE | 2017-05-03 18:20 | PCM.PYCHPN ---
Psychiatric Progress Note - Psychiatric Progress Note Patient seen today, length of contact: 15 min Patient Chief Complaint: I'm feeling much better Problems Identified/Issues Discussed: Patient seen, chart reviewed, case discussed with the staff. Issues related to illness and treatment were discussed with the patient. Reported compliant with treatment with no adverse affects. Tolerating treatment very well. Patient denied any auditory or visual hallucinations, denied any delusions. Still appeared internally preoccupied. Most of the time isolated in her room. At the time of evaluation, patient was awake alert oriented 3, no suicidal ideations or homicidal ideations. Aftercare discussed with the patient. Medical Problems: None reported Diagnostic Results: Reviewed DSM 5 Symptoms Update: Some improvement with treatment Medication Change: No Medical Record Reviewed: Yes Mental Status Examination - Cognitive Function Orientation: Person, Place, Situation, Time Memory: Intact Attention: WNL Concentration: WNL Association: WNL Fund of Knowledge: WN Decription of patient's judgement and insights: Fair - Mood Mood: Anxious, Other - Affect Affect: Other (Appropriate) - Speech Speech: Soft - Formal Thought Process Formal Thought Process: Loosening of associations, Other (Appeared internally preoccupied) - Suicidal Ideation Suicidal Ideation: No - Homicidal Ideation Homicidal Ideation: No Goal/Treatment Plan - Goal/Treatment Plan Need for Continued Stay: Remain at risks for inpatient hospitalization, Discharge may exacerbated symptoms, Severe functional impairment Progress Toward Problem(s) and Goals/Treatment Plan: Patient education Supportive therapy Continue treatment as before Patient will go to [facility] for follow-up after discharge from the hospital. Estimated Date of D/C: 05/07/17 - Smoking Cessation Smoking Cessation Initiated: No
--- NOTE | 2017-05-04 17:24 | PCM.PYCHPN ---
Psychiatric Progress Note - Psychiatric Progress Note Patient seen today, length of contact: 15 min Patient Chief Complaint: I'm feeling much better Problems Identified/Issues Discussed: Patient seen, chart reviewed, case discussed with the staff. Issues related to illness and treatment were discussed with the patient. Reported compliant with treatment with no adverse affects. Tolerating treatment very well. Patient denied any auditory or visual hallucinations, denied any delusions. According to staff patient was more visible on the unit and more social. At the time of evaluation, patient was awake alert oriented 3, no suicidal ideations or homicidal ideations. Aftercare discussed with the patient. Medical Problems: None reported Diagnostic Results: Reviewed DSM 5 Symptoms Update: Improving with treatment Medication Change: No Medical Record Reviewed: Yes Mental Status Examination - Cognitive Function Orientation: Person, Place, Situation, Time Memory: Intact Attention: WNL Concentration: WNL Association: WNL Fund of Knowledge: WN Decription of patient's judgement and insights: Fair - Mood Mood: Anxious (Much less than before), Other - Affect Affect: Other (Appropriate) - Speech Speech: Soft - Formal Thought Process Formal Thought Process: Loosening of associations - Suicidal Ideation Suicidal Ideation: No - Homicidal Ideation Homicidal Ideation: No Goal/Treatment Plan - Goal/Treatment Plan Need for Continued Stay: Remain at risks for inpatient hospitalization, Discharge may exacerbated symptoms, Severe functional impairment Progress Toward Problem(s) and Goals/Treatment Plan: Patient education Supportive therapy Continue treatment as before Patient will go to [facility] for follow-up after discharge from the hospital. Estimated Date of D/C: 05/07/17 - Smoking Cessation Smoking Cessation Initiated: No
--- NOTE | 2017-05-05 11:13 | PCM.PYCHPN ---
Psychiatric Progress Note - Psychiatric Progress Note Patient seen today, length of contact: 15 min Patient Chief Complaint: I am still hearing voices.' Problems Identified/Issues Discussed: Patient seen and evaluated, chart reviewed and discussed with the nurse. Today pt. appears more organized and less internally preoccupied than before. As per the staff patient is still talking to herself and still pacing back and forth in the hallways. However she has started coming out of her room. She is not talking to anyone and she remained isolated, confined and withdrawn. She still reports of hearing voices and she still appears paranoid and delusional. She is taking medication and denies any side effects. She needs more time for stabilization. Supportive therapy and psychoeducation were given. Medication Change: Yes (d/c klonopin, start Zoloft) Medical Record Reviewed: Yes Mental Status Examination - Cognitive Function Orientation: Person, Place, Situation, Time Memory: Intact Attention: WNL Concentration: Poor Association: Loose Fund of Knowledge: WNL - Mood Mood: Depressed, Anxious (Much less than before) - Affect Affect: Constricted, Depressed - Speech Speech: Soft - Formal Thought Process Formal Thought Process: Delusions, Paranoia, Loosening of associations - Suicidal Ideation Suicidal Ideation: No - Homicidal Ideation Homicidal Ideation: No Goal/Treatment Plan - Goal/Treatment Plan Need for Continued Stay: Remain at risks for inpatient hospitalization, Discharge may exacerbated symptoms, Severe functional impairment Progress Toward Problem(s) and Goals/Treatment Plan: Schizophrenia paranoid type r/o Schizoaffective disorder depressive type CBT Psychoeducation Supportive therapy, group therapy, individual therapy Haldol 10 mg by mouth twice a day Cogentin 1 mg by mouth twice a day d/c Klonopin 1 mg by mouth twice a day Trazodone 50 mg by mouth daily at bedtime Ativan 1 mg PO Q6hr prn PRN meds Start Zoloft 25 mg Estimated Date of D/C: 05/07/17 - Smoking Cessation Smoking Cessation Initiated: No
--- NOTE | 2017-05-06 22:26 | PCM.PYCHPN ---
Psychiatric Progress Note - Psychiatric Progress Note Patient seen today, length of contact: 15 min Patient Chief Complaint: I am feeling little better.' Problems Identified/Issues Discussed: Patient seen and evaluated, chart reviewed and discussed with the nurse. As per the staff patient has started socializing with peers and more organized and less internally preoccupied than before. However, she is still pacing back and forth in the hallways. She reports improvement in her voices and reports improvement in her mood. She is taking medication and denies any side effects. She needs more time for stabilization. Supportive therapy and psychoeducation were given. Medication Change: Yes (increase Zoloft) Medical Record Reviewed: Yes Mental Status Examination - Cognitive Function Orientation: Person, Place, Situation, Time Memory: Intact Attention: WNL Concentration: Poor Association: Loose Fund of Knowledge: WNL - Mood Mood: Depressed, Anxious (Much less than before) - Affect Affect: Constricted, Depressed - Speech Speech: Soft - Formal Thought Process Formal Thought Process: Loosening of associations - Suicidal Ideation Suicidal Ideation: No - Homicidal Ideation Homicidal Ideation: No Goal/Treatment Plan - Goal/Treatment Plan Need for Continued Stay: Remain at risks for inpatient hospitalization, Discharge may exacerbated symptoms, Severe functional impairment Progress Toward Problem(s) and Goals/Treatment Plan: Schizophrenia paranoid type r/o Schizoaffective disorder depressive type CBT Psychoeducation Supportive therapy, group therapy, individual therapy Haldol 10 mg by mouth twice a day Cogentin 1 mg by mouth twice a day Trazodone 50 mg by mouth daily at bedtime Ativan 1 mg PO Q6hr prn PRN meds Zoloft 75 mg Estimated Date of D/C: 05/07/17 - Smoking Cessation Smoking Cessation Initiated: No
--- NOTE | 2017-05-07 09:51 | PCM.PYCHPN ---
Psychiatric Progress Note - Psychiatric Progress Note Patient seen today, length of contact: 15 min Patient Chief Complaint: I am feeling little better.' Problems Identified/Issues Discussed: Patient seen and evaluated, chart reviewed and discussed with the nurse. She reports improvement in her voices and reports improvement in her mood. She appears more organized and kempt. She denies any AVH or any SI/HI. However, she is still pacing back and forth in the hallways. She is taking medication and denies any side effects. She needs more time for stabilization. Supportive therapy and psychoeducation were given. Medication Change: Yes (increase Zoloft) Medical Record Reviewed: Yes Mental Status Examination - Cognitive Function Orientation: Person, Place, Situation, Time Memory: Intact Attention: WNL Concentration: Poor Association: WNL Fund of Knowledge: WNL - Mood Mood: Depressed, Anxious (Much less than before) - Affect Affect: Constricted, Depressed - Speech Speech: Soft - Formal Thought Process Formal Thought Process: No Impairment - Suicidal Ideation Suicidal Ideation: No - Homicidal Ideation Homicidal Ideation: No Goal/Treatment Plan - Goal/Treatment Plan Need for Continued Stay: Remain at risks for inpatient hospitalization, Discharge may exacerbated symptoms, Severe functional impairment Progress Toward Problem(s) and Goals/Treatment Plan: Schizophrenia paranoid type r/o Schizoaffective disorder depressive type CBT Psychoeducation Supportive therapy, group therapy, individual therapy Haldol 10 mg by mouth twice a day Cogentin 1 mg by mouth twice a day Trazodone 50 mg by mouth daily at bedtime Ativan 1 mg PO Q6hr prn PRN meds Zoloft 100 mg Estimated Date of D/C: 05/07/17 - Smoking Cessation Smoking Cessation Initiated: No
--- NOTE | 2017-05-07 10:08 | PCM.BM ---
<LeandroRuma Saab - Last Filed: 05/07/17 10:08> Treatment Plan Problems - Problems identified on initial assessmt Delusions Date Initiated: 04/29/17 Time Initiated: :34 Assessment reference: NA Status: Active Treatment assets and liabiliti Patient Assests: cooperative, self-reliant, ADL independent Patient Liabilities: poor support system, other (non compliant with medications) - Milieu Protocol Maintain good personal hygiene: daily Encourage regular showers, daily Remind patient to perform daily oral care Conduct patient checks and document Observation sheet: Q15 minutes Maintain personal safety: every shift Educate patient to report safety concerns to staff, every shift Monitor environment for contraband/sharps Medication safety: Monitor for expected outcome, potential side effects: every shift, Assess barriers to learning: every shift, Assess readiness for medication education: every shift Milieu Narrative: Schizophrenia paranoid type r/o Schizoaffective disorder depressive type CBT Psychoeducation Supportive therapy, group therapy, individual therapy Haldol 10 mg by mouth twice a day Cogentin 1 mg by mouth twice a day Trazodone 50 mg by mouth daily at bedtime Ativan 1 mg PO Q6hr prn PRN meds Zoloft 75 mg Family Contact Family involvement: Family/SO is involved Family contact: Patient agrees to contact - Goals for Treatment Patient goals for treatment: "I don't know." Discharge/Continuing Care - Education Needs Education Needs: Patient Medication, Patient Coping Skills - Discharge Discharge Criteria: Tolerates medication w/o severe side effects, Reduction of target symptoms Discharge to:: Home, With Family - Treatment Team Participation Patient/Family/SO Statement: Schizophrenia paranoid type r/o Schizoaffective disorder depressive type CBT Psychoeducation Supportive therapy, group therapy, individual therapy Haldol 10 mg by mouth twice a day Cogentin 1 mg by mouth twice a day Trazodone 50 mg by mouth daily at bedtime Ativan 1 mg PO Q6hr prn PRN meds Zoloft 75 mg Discussed with Family/SO: No Was Patient/Family/SO present at Treatment Team Meeting: Yes Treatment Plan Review - Problem Delusions Time Initiated: :34 - Discharge / Continuing Care Discharge to:: Home, With Family Behavioral Health Services: Partial hospital Health Needs: Medications/Rx <Angela Bliss - Last Filed: 05/07/17 10:47> - Diagnosis (1) Schizophrenia Status: Acute Interventions: 05/07/17 10:47 * Assess/adjust medications daily and /or as needed * See patient on an individual basis 7x/week to assess status of hallucinations * Discuss risks, benefits, side effects and alternatives of medications * <Josselin Saini - Last Filed: 05/07/17 13:27> Treatment Plan Review - Problem Delusions Date Initiated: 05/07/17 Time Initiated: 12:00 Progress toward outcomes: improved
[2017-05-08 06:31] VITALS: BP 101/58; PULSE 73; RESP 18; TEMP 98.1
--- NOTE | 2017-05-08 09:51 | PCM.PYCHDC ---
Mental Status Examination - Mental Status Examination Orientation: Person, Place, Situation, Time Memory: Intact Mood: Neutral Affect: Constricted Speech: Soft Attention: WNL Concentration: WNL Association: WNL Fund of Knowledge: WNL Formal Thought Process: No Impairment Description of patient's judgement and insight: good, fair Psychotic Thoughts and Behaviors: denies any AVH Suicidal Ideation: No Current Homicidal Ideation?: No Discharge Summary - Discharge Note Reason for Hospitalization: This is a 22 yo female, Single and unemployed, who currently lives with her mother, was escorted to the ED by the police, when they found her disheveled and unkempt and wandering on the streets. Patient has a long history of schizoaffective disorder. Patient has history of multiple inpatient psychiatric admissions, last discharged from [facility] , almost 6 months ago. Patient remained disorganized and internally preoccupied throughout the interview. Patient appeared paranoid and delusional. She reports of hearing a lot of voices but could not elaborate. She reports of seeing shadows and demons. She remained partially mute and was looking around suspiciously during interview. Patient reports that she stopped taking her medications. Patient denies any drinking or any substance abuse. Per staff, since last night she is pacing back and forth in the hallways and talking to herself continuously and remained disheveled, unkempt and disorganized. Consultations:: List each consultation separately and include: 1. Reason for request. 2. Findings. 3. Follow-up Summary of Hospital Course include:: 1. Description of specific treatment plan utilized for patients during their course of treatmen. 2. Summarize the time- course for resolution of acute symptoms and/or regressed behaviors. 3. Describe issues identified and worked on during hospitalization. 4. Describe medication utilized. 5. Describe medical problems identified and treated. 6. Reassessment of suicide risk Summary of Hospital Course: During the course of her stay, patient (pt) started progressively improving and she no longer remained irritable, anxious and paranoid. Her mood and paranoia were improved and she started attending groups and meetings and started socializing. Patient denied any feelings of hopelessness, helplessness, and worthlessness, denied any problem with the sleep or appetite, denied suicidal ideation or homicidal ideation. Pt denied any auditory or visual hallucinations. Some changes were made in her current medications and patient was discharged on following medications. She tolerated these medications very well and denied any side effects. Pt is to return home with mother and to attend day program at [facility]. - Diagnosis (1) Schizophrenia Status: Acute - Final Diagnosis (DSM 5) Condition upon Discharge: STABLE DSM 5: Schizoaffective disorder depressive type Disposition: HOME/ ROUTINE Follow-up Treatment Plan: Education: Pt was educated and counseled about the risks and benefits of taking and not taking medications. Pt was educated and counseled about the risks of drinking and abusing drugs. Pt was educated and counseled to go to the ER or call 911 if pt develop suicidal ideation or homicidal ideation, worsening of symptoms or severe side effects of the meds. Prescriptions/Medication Reconciliation: Benztropine [Cogentin] 1 mg PO BID #60 tab Haloperidol [Haldol] 10 mg PO BID #60 tab Sertraline [Zoloft] 100 mg PO DAILY #30 tab traZODone [Desyrel] 50 mg PO HS PRN #30 tab PRN Reason: Insomnia - Smoking Cessation Smoking Cessation Medication prescribed: No - Antipsychotic Medications Pt discharged on 2 or more routine antipsychotic medications: No
== END 2017-05-08 10:59 | disposition home or self-care (01) | DRG 430 ==
LOC: C.ER 18:24 → C.5E 18:49
PROVIDERS: ADMIT Psychiatry & Neurology Psychiatry; ATTEND Psychiatry & Neurology Psychiatry
PROC: GZHZZZZ Group Psychotherapy (ICD-10-PCS; principal; 2017-04-29)
PROC: GZ58ZZZ Individual Psychotherapy, Cognitive-Behavioral (ICD-10-PCS; 2017-04-29)
PROC: GZ56ZZZ Individual Psychotherapy, Supportive (ICD-10-PCS; 2017-04-29)
DX: F25.1 Schizoaffective disorder, depressive type (principal); F41.9 Anxiety disorder, unspecified

== ENCOUNTER 2018-04-08 01:17 | Inpatient (IN) | payer MEDICAID ==
[2018-04-08 02:44] LABS: BASO % 0.5 % (0.0-2.0); EOS # 0.1 K/uL (0.0-0.7); EOS % 1.4 % (0.0-4.0); HEMOGLOBIN 11.9 g/dL (11.0-16.0); LYMPH % 31.6 % (20.0-40.0); MEAN CORPUSCULAR HEMOGLOBIN 31.7 pg (27.0-31.0); MEAN CORPUSCULAR HGB CONC 33.7 g/dL (33.0-37.0); MEAN PLATELET VOLUME 7.5 fL (7.2-11.7); MONO # 1.4 K/uL (0.0-0.8); MONO % 15.1 % (0.0-10.0); NEUT # 4.8 K/uL (1.8-7.0); NEUT % 51.4 % (50.0-75.0); NRBC % 0.1 % (0.0-2.0); RBC 3.76 Mil/uL (3.80-5.20); RED CELL DISTRIBUTION WIDTH 12.7 % (11.5-14.5); WHITE BLOOD COUNT 9.4 K/uL (4.8-10.8)
[2018-04-08 02:57] LABS: ALB/GLOB RATIO 1.2 (1.0-2.1); ALBUMIN 3.8 g/dL (3.5-5.0); ALT/SGPT 18 U/L (9-52); AST/SGOT 17 U/L (14-36); BLOOD UREA NITROGEN 12 mg/dL (7-17); CALCIUM 8.4 mg/dl (8.6-10.4); GFR NON-AFRICAN AMERICAN > 60
[2018-04-08 03:34] LABS: SQUAMOUS EPITHIAL 4 /hpf (0-5); URINE BACTERIA RARE (<OCC); URINE BILIRUBIN NEGATIVE (NEGATIVE); URINE BLOOD NEGATIVE (NEGATIVE); URINE CLARITY Clear (Clear); URINE COLOR Yellow (YELLOW); URINE GLUCOSE (UA) NORMAL (Normal); URINE LEUKOCYTE ESTERASE TRACE Leu/uL (Negative); URINE PROTEIN NEGATIVE (NEGATIVE)
[2018-04-08 03:45] LABS: BARBITURATES, UR NEGATIVE (NEGATIVE); BENZODIAZEPINES, UR NEGATIVE (NEGATIVE); OPIATES, UR NEGATIVE (NEGATIVE); PHENCYCLIDINE, UR NEGATIVE (NEGATIVE)
--- NOTE | 2018-04-08 03:54 | C.PDOC ---
History Of Present Illness 23 year old female brought in via EMS after being found sleeping on the ground. In the ER patient reports having suicidal ideation. Denies other complaints at this time. Pt is uncooperative and refuses to answer anymore questions. <Priscilla Ball - Last Filed: 04/08/18 06:20> <Juan Carlos Rico - Last Filed: 04/08/18 05:02> History Per: Patient History/Exam Limitations: other (uncooperative) Onset/Duration Of Symptoms: Hrs Current Symptoms Are (Timing): Still Present Suicide/Self Injury Attempted (Context): None Modifying Factor(s): Other (unknown) Associated Symptoms: Suicidal Thoughts Recent travel outside of the [place]: No <Priscilla Ball - Last Filed: 04/08/18 06:20> Time Seen by Provider: 04/08/18 01:58 Chief Complaint (Nursing): Psychiatric Evaluation Past Medical History Vital Signs: Last Vital Signs Temp 98.1 F 04/08/18 04:25 Pulse 63 04/08/18 04:25 Resp 18 04/08/18 04:25 BP 100/75 04/08/18 04:25 Pulse Ox 98 04/08/18 04:25 - [facility] Procedures FAMILY PSYCHOTHERAPY (05/17/16) GROUP PSYCHOTHERAPY (04/29/17) INDIVIDUAL PSYCHOTHERAPY, COGNITIVE-BEHAVIORAL (04/29/17) INDIVIDUAL PSYCHOTHERAPY, SUPPORTIVE (04/29/17) MEDICATION MANAGEMENT (05/17/16) PSYCHIA INTERV/EVAL NEC (08/23/14) <Juan Carlos Rico - Last Filed: 04/08/18 05:02> Reviewed: Historical Data, Nursing Documentation, Vital Signs Vital Signs: Last Vital Signs Temp 98.3 F 04/08/18 01:30 Pulse 83 04/08/18 01:30 Resp 20 04/08/18 01:30 BP 101/63 04/08/18 01:30 Pulse Ox 99 04/08/18 01:30 - Medical History PMH: Anxiety, Bipolar Disorder, Depression, Schizophrenia Denies: Diabetes, Hepatitis, HIV, HTN, Chronic Kidney Disease, Seizures, Sexually Transmitted Disease - [facility] Procedures FAMILY PSYCHOTHERAPY (05/17/16) GROUP PSYCHOTHERAPY (04/29/17) INDIVIDUAL PSYCHOTHERAPY, COGNITIVE-BEHAVIORAL (04/29/17) INDIVIDUAL PSYCHOTHERAPY, SUPPORTIVE (04/29/17) MEDICATION MANAGEMENT (05/17/16) PSYCHIA INTERV/EVAL NEC (08/23/14) Family History: States: Unknown Family Hx - Social History Hx Tobacco Use: No Hx Alcohol Use: No Hx Substance Use: No - Immunization History Hx Tetanus Toxoid Vaccination: No Hx Influenza Vaccination: No Hx Pneumococcal Vaccination: No <Priscilla Ball - Last Filed: 04/08/18 06:20> Review Of Systems Review Of Systems: ROS cannot be obtained secondary to pt's inabilty to answer questions. (uncooperative) Psych: Positive for: Suicidal ideation <Priscilla Ball - Last Filed: 04/08/18 06:20> Physical Exam - Physical Exam Appears: Non-toxic Skin: Normal Color, Warm, Dry Head: Atraumatic, Normacephalic Eye(s): bilateral: Normal Inspection Oral Mucosa: Moist Chest: Symmetrical, No Tenderness Cardiovascular: Rhythm Regular Respiratory: Normal Breath Sounds, No Rales, No Rhonchi, No Wheezing Gastrointestinal/Abdominal: Soft, No Tenderness Neurological/Psych: Normal Speech, Other (alert and responsive ) <Priscilla Ball - Last Filed: 04/08/18 06:20> ED Course And Treatment - Laboratory Results Result Diagrams: 04/08/18 02:40 04/08/18 02:40 Lab Results: Total Bilirubin 0.4 mg/dL (0.2-1.3) 04/08/18 02:40 AST 17 U/L (14-36) 04/08/18 02:40 ALT 18 U/L (9-52) 04/08/18 02:40 Alkaline Phosphatase 54 U/L (38-126) 04/08/18 02:40 Total Protein 6.8 g/dL (6.3-8.3) 04/08/18 02:40 Albumin 3.8 g/dL (3.5-5.0) 04/08/18 02:40 Globulin 3.0 gm/dL (2.2-3.9) 04/08/18 02:40 Albumin/Globulin Ratio 1.2 (1.0-2.1) 04/08/18 02:40 Urine Color Yellow (YELLOW) 04/08/18 03:26 Urine Clarity Clear (Clear) 04/08/18 03:26 Urine pH 6.0 (5.0-8.0) 04/08/18 03:26 Ur Specific Darrow 1.024 (1.003-1.030) 04/08/18 03:26 Urine Protein Negative mg/dL (NEGATIVE) 04/08/18 03:26 Urine Glucose (UA) Normal mg/dL (Normal) 04/08/18 03:26 Urine Ketones Negative mg/dL (NEGATIVE) 04/08/18 03:26 Urine Blood Negative (NEGATIVE) 04/08/18 03:26 Urine Nitrate Negative (NEGATIVE) 04/08/18 03:26 Urine Bilirubin Negative (NEGATIVE) 04/08/18 03:26 Urine Urobilinogen 2.0 mg/dL (0.2-1.0) H 04/08/18 03:26 Ur Leukocyte Esterase Trace Chano/uL (Negative) 04/08/18 03:26 Urine WBC (Auto) 5 /hpf (0-5) 04/08/18 03:26 Urine RBC (Auto) 4 /hpf (0-3) H 04/08/18 03:26 Ur Squamous Epith Cells 4 /hpf (0-5) 04/08/18 03:26 Urine Bacteria Rare (<OCC) 04/08/18 03:26 Urine HCG, Qual Negative (NEGATIVE) 04/08/18 03:26 Urine HCG, Qual Negative (NEGATIVE) 04/08/18 03:26 ECG: Interpreted By Me, Viewed By Me ECG Rhythm: Sinus Rhythm (64), Nonspecific Changes Pulse Ox Interpretation: Normal - Radiology CXR: Interpreted by Me, Viewed By Me CXR Interpretation: No: Infiltrates, Fracture, Pnemothorax <Juan Carlos Rico - Last Filed: 04/08/18 05:02> - Laboratory Results Result Diagrams: 04/08/18 02:40 04/08/18 02:40 Lab Results: Total Bilirubin 0.4 mg/dL (0.2-1.3) 04/08/18 02:40 AST 17 U/L (14-36) 04/08/18 02:40 ALT 18 U/L (9-52) 04/08/18 02:40 Alkaline Phosphatase 54 U/L (38-126) 04/08/18 02:40 Total Protein 6.8 g/dL (6.3-8.3) 04/08/18 02:40 Albumin 3.8 g/dL (3.5-5.0) 04/08/18 02:40 Globulin 3.0 gm/dL (2.2-3.9) 04/08/18 02:40 Albumin/Globulin Ratio 1.2 (1.0-2.1) 04/08/18 02:40 Urine Color Yellow (YELLOW) 04/08/18 03:26 Urine Clarity Clear (Clear) 04/08/18 03:26 Urine pH 6.0 (5.0-8.0) 04/08/18 03:26 Ur Specific Darrow 1.024 (1.003-1.030) 04/08/18 03:26 Urine Protein Negative mg/dL (NEGATIVE) 04/08/18 03:26 Urine Glucose (UA) Normal mg/dL (Normal) 04/08/18 03:26 Urine Ketones Negative mg/dL (NEGATIVE) 04/08/18 03:26 Urine Blood Negative (NEGATIVE) 04/08/18 03:26 Urine Nitrate Negative (NEGATIVE) 04/08/18 03:26 Urine Bilirubin Negative (NEGATIVE) 04/08/18 03:26 Urine Urobilinogen 2.0 mg/dL (0.2-1.0) H 04/08/18 03:26 Ur Leukocyte Esterase Trace Chano/uL (Negative) 04/08/18 03:26 Urine WBC (Auto) 5 /hpf (0-5) 04/08/18 03:26 Urine RBC (Auto) 4 /hpf (0-3) H 04/08/18 03:26 Ur Squamous Epith Cells 4 /hpf (0-5) 04/08/18 03:26 Urine Bacteria Rare (<OCC) 04/08/18 03:26 Urine HCG, Qual Negative (NEGATIVE) 04/08/18 03:26 Urine HCG, Qual Negative (NEGATIVE) 04/08/18 03:26 O2 Sat by Pulse Oximetry: 99 (Room air) Pulse Ox Interpretation: Normal Progress Note: Blood work and urinalysis ordered. Crisis notified. Patient medically cleared for psych evaluation. <Priscilla Ball - Last Filed: 04/08/18 06:20> Disposition <Juan Carlos Rico - Last Filed: 04/08/18 05:02> - Disposition Disposition Time: 07:00 <Priscilla Ball Last Filed: 04/08/18 06:20> - Disposition Condition: STABLE Forms: [facility] (Arabic) - Clinical Impression Clinical Impression: Suicidal ideation - PA / CAD OPERATOR / Resident Statement MD/DO has reviewed & agrees with the documentation as recorded. - Scribe Statement The provider has reviewed the documentation as recorded by the Scribe Toni Walker All medical record entries made by the Scribe were at my direction and personally dictated by me. I have reviewed the chart and agree that the record accurately reflects my personal performance of the history, physical exam, medical decision making, and the department course for this patient. I have also personally directed, reviewed, and agree with the discharge instructions and disposition. <Priscilla Ball - Last Filed: 04/08/18 06:20> Physician Patient Turnover Patient Signed Over To: Tamar Hughes Handoff Comments: Pending evaluation by [facility] [place] <Priscilla Ball - Last Filed: 04/08/18 06:20>
[2018-04-08 06:15] VITALS: O2SAT 99
--- NOTE | 2018-04-08 10:15 | RAD ---
HISTORY: screening, admission COMPARISON: Chest x-ray performed 05/17/16. TECHNIQUE: Chest, one view. FINDINGS: Examination limited by patient obliquity. LUNGS: No focal consolidation. Please note that chest x-ray has limited sensitivity for the detection of pulmonary masses. PLEURA: No significant pleural effusion identified. No definite pneumothorax . CARDIOVASCULAR: The cardiomediastinal silhouette appears within normal limits of size. No significant atherosclerotic calcification present. OSSEOUS STRUCTURES: No acute osseous abnormality identified. VISUALIZED UPPER ABDOMEN: Unremarkable. OTHER FINDINGS: None. IMPRESSION: No focal consolidation identified.
[2018-04-08] MEDS ORDERED: DiphenhydrAMINE 50 mg/ml Inj IM STA (15:13)
[2018-04-08] MEDS: Divalproex 250 mg DR Tab PO SCH ×2 (16:16→18:27)
--- NOTE | 2018-04-08 23:30 | PCM.BM ---
<Sammie Stewart - Last Filed: 04/08/18 23:28> Treatment Plan Problems - Problems identified on initial assessmt Altered thought process Date Initiated: 04/08/18 Time Initiated: 15:15 Assessment reference: NA Status: Active Suicidal Ideation Date Initiated: 04/08/18 Time Initiated: 15:15 Assessment reference: NA Status: Active Treatment assets and liabiliti Patient Assests: negotiates basic needs Patient Liabilities: poor support system, relationship conflicts - Milieu Protocol Maintain good personal hygiene: daily Encourage regular showers, daily Remind patient to perform daily oral care, every shift Assist patient to perform ADL's Conduct patient checks and document Observation sheet: Q15 minutes Maintain personal safety: every shift Educate patient to report safety concerns to staff, every shift Monitor environment for contraband/sharps Medication safety: Monitor for expected outcome, potential side effects: every shift, Assess barriers to learning: every shift, Assess readiness for medication education: every shift <Ruma Richard - Last Filed: 04/10/18 11:34> Family Contact Family involvement: Family/SO is involved Family contact: Patient agrees to contact - Goals for Treatment Patient goals for treatment: "I don't know." Discharge/Continuing Care - Education Needs Education Needs: Patient Medication, Patient Coping Skills - Discharge Discharge Criteria: Tolerates medication w/o severe side effects, Reduction of target symptoms Discharge to:: Home, With Family - Treatment Team Participation Discussed with Family/SO: No Was Patient/Family/SO present at Treatment Team Meeting: Yes
[2018-04-09] MEDS: Divalproex 250 mg DR Tab PO SCH ×2 (02:16→10:17)
--- NOTE | 2018-04-09 10:12 | PCM.PSYCH ---
Initial Psychiatric Evaluation - Initial Psychiatric Evaluation Type of Admission: Voluntary Legal Status: Capacity Chief Complaint (in patient's own words): I am hearing voices History of Present Illness and Precipitating Events: Patient is a 23 years old to [facility] because of increasingly depressed mood, disorganized behavior and suicidal ideation. [employer] is familiar with this patient. Patient has been admitted multiple times at [facility] and [facility] because of disorganized behavior and exacerbation of schizophrenia. As per the ED note, [place] and refusing to answer questions. Pt reports that she wants to kill herself. Patient remained disorganized and internally preoccupied throughout the interview. She appears very paranoid and suspicious and delusional. Patient reports that she became increasingly depressed as soon as she stopped taking her medications. She reports that she started hearing voices telling her to kill herself. Staff reports that patient remained increasingly irritable, agitated, hostile and oppositional. She remained disorganized and continued to have loose associations throughout the interview. Pt appears acutely regressed, lying in position on the bed. She also reports visual hallucinations seeing shadows and paranoia that people are following her. However she denies any drinking or any drugs. Past medical history None reported Current Medications: Active Medications Generic Name Dose Route Start Last Admin Trade Name Freq PRN Reason Stop Dose Admin Benztropine Mesylate 1 mg 04/08/18 18:00 04/08/18 20:45 Cogentin PO 1 mg BID FRANKY Administration Benztropine Mesylate 2 mg 04/08/18 15:32 04/09/18 02:16 Cogentin PO 2 mg Q6 PRN Administration Extra Pyramidal Symptoms Clonazepam 1 mg 04/08/18 18:00 04/08/18 18:27 Klonopin PO Not Given TID FRANKY Divalproex Sodium 250 mg 04/08/18 16:30 04/09/18 02:[address] PO 250 mg TID FRANKY Administration Docusate Sodium 100 mg 04/08/18 15:31 Colace PO TID PRN Constipation Famotidine 20 mg 04/09/18 10:00 Pepcid PO DAILY FRANKY Haloperidol 5 mg 04/08/18 18:00 04/08/18 20:45 Haldol PO 5 mg BID FRANKY Administration Haloperidol 5 mg 04/08/18 15:32 01/31/19 08:25 Haldol PO 5 mg Q8 PRN Administration Moderate Agitation Haloperidol Lactate 5 mg 04/08/18 15:32 Haldol IM Q8 PRN Moderate Agitation Hydroxyzine HCl 25 mg 04/08/18 15:32 Atarax PO Q6 PRN Anxiety Lorazepam 2 mg 04/08/18 15:32 04/09/18 02:16 Ativan PO 1 mg Q8H PRN Administration Severe Agitation Pneumococcal Polyvalent Vaccine 0.5 ml 04/11/18 10:00 Pneumovax 23 Vaccine IM 04/11/18 10:01 .ONCE ONE Trazodone HCl 50 mg 04/08/18 15:31 04/08/18 20:45 Desyrel PO 50 mg HS PRN Administration Insomnia Past Psychiatric History - Past Psychiatric History Previous Treatment History: Inpatient Pertinent Medical Hx (Current Medical&Sleep Prob, Allergies): Allergies Allergy/AdvReac Type Severity Reaction Status Date / Time No Known Allergies Allergy Verified 04/08/18 01:57 Docusate [Colace] 100 mg PO TID PRN #30 cap 04/26/17 Famotidine [Pepcid] 20 mg PO DAILY #20 tab 04/26/17 Benztropine [Cogentin] 1 mg PO BID #60 tab 05/08/17 Haloperidol [Haldol] 10 mg PO BID #60 tab 05/08/17 Sertraline [Zoloft] 100 mg PO DAILY #30 tab 05/08/17 traZODone [Desyrel] 50 mg PO HS PRN #30 tab 05/08/17 Review of Systems - Review of Systems All systems: reviewed and no additional remarkable complaints except - Psychiatric Psychiatric: Anxiety, Auditory Hallucinations, Irritability, Mood Swings, Paranoia, Suicidal Ideation Mental Status Examination - Personal Presentation Personal Presentation: Looks stated age - Affect Affect: Broad - Motor Activity Motor Activity: Psychomotor Agitation - Reliability in Providing Information Reliability in Providing Information: Poor, due to alteration in thoughts, Poor, due to altered mood - Speech Speech: Disorganized - Mood Mood: Depressed, Anxious - Formal Thought Process Formal Thought Process: Hallucinations, Delusions, Paranoia, Loosening of associations - Hallucinations/Delusions Hallucinations: Visual, Auditory Delusions: Persecution - Obsessions/Compulsions Obsessions: No Compulsions: No - Cognitive Functions Orientation: Person, Place, Situation, Time Attention/Concentration: Attentive Abstract Thinking: Lerna Estimate of Intelligence: Below average Judgement: Imparied, as evidence by: Poor judgement, Imparied, as evidence by: Lack of insight into illness - Risk Risk: Suicidal, Diminished functioning - Limitations Limitations: Living alone DSM 5 DX - DSM 5 DSM 5 Diagnosis: Schizoaffective disorder bipolar type - Recommended/Plan of Treatment Treatment Recommendations and Plan of Treatment: Schizoaffective disorder bipolar type Psychoeducation Supportive therapy and group therapy Depakote for mood stabilization Klonopin for anxiety Haldol psychosis Risperdal psychosis Invega Sussten 235 mg IM q monthly Trazodone for insomnia - Smoking Cessation Smoking Cessation Initiated: No
[2018-04-09] MEDS ORDERED: Paliperidone Palmitate 234 MG/1.5 ML SYR IM ONE (10:17)
[2018-04-09] MEDS: Divalproex 500 mg DR Tab PO SCH (17:52)
[2018-04-10] MEDS: Divalproex 500 mg DR Tab PO SCH ×2 (10:05→17:24)
--- NOTE | 2018-04-10 10:06 | PCM.PYCHPN ---
Psychiatric Progress Note - Psychiatric Progress Note Patient seen today, length of contact: 15 min Patient Chief Complaint: I am hearing voices Problems Identified/Issues Discussed: She was seen and evaluated, chart reviewed and discussed with the staff. She still appears disorganized and internally preoccupied. She remained disheveled and unkempt and at times found responding to internal stimuli. She appears at times paranoid and delusional. As per staff she is still pacing back and forth in the hallways and not communicating to anyone. However she is taking her medications and denies any side effects. Supportive therapy was given. Medication Change: Yes Medical Record Reviewed: Yes Mental Status Examination - Cognitive Function Orientation: Person, Place, Situation, Time Memory: Intact Attention: Poor Concentration: Poor Association: Loose Fund of Knowledge: Poor - Mood Mood: Depressed, Anxious - Affect Affect: Broad - Speech Speech: Soft - Formal Thought Process Formal Thought Process: Hallucinations, Delusions, Paranoia, Loosening of associations - Suicidal Ideation Suicidal Ideation: No - Homicidal Ideation Homicidal Ideation: No Goal/Treatment Plan - Goal/Treatment Plan Need for Continued Stay: Remain at risks for inpatient hospitalization, Severe depression anxiety Progress Toward Problem(s) and Goals/Treatment Plan: Schizoaffective disorder bipolar type Psychoeducation Supportive therapy and group therapy Depakote for mood stabilization Klonopin for anxiety DC Haldol psychosis Risperdal psychosis Invega Sussten 235 mg IM q monthly Trazodone for insomnia Start Risperdal for psychosis
[2018-04-11] MEDS ORDERED: Pneumococcal 23-Valent Vaccine IM ONE (10:00)
[2018-04-11] MEDS: Divalproex 500 mg DR Tab PO SCH ×2 (10:01→17:38)
--- NOTE | 2018-04-11 21:44 | PCM.PYCHPN ---
Psychiatric Progress Note - Psychiatric Progress Note Patient seen today, length of contact: 15 min Patient Chief Complaint: I am feeling better. Patient was evaluated using translation services. Intubated #[id number]. Problems Identified/Issues Discussed: Patient seen, chart reviewed, case discussed with the staff. Issues related to illness and treatment were discussed with the patient and staff. Reported compliant with treatment with no adverse effects. Tolerating treatment very well. Reported feeling better with the treatment. Mood reported as okay. Affect inappropriate, appeared Flat. Calm and cooperative. Awake, alert and oriented x3. Aftercare discussed with the patient. Denied any delusions, auditory or visual hallucinations, suicidal ideations or homicidal ideations at the time of evaluation. Medical Problems: None reported Diagnostic Results: Reviewed DSM 5 Symptoms Update: Some improvement with treatment. Medication Change: No Medical Record Reviewed: Yes Mental Status Examination - Cognitive Function Orientation: Person, Place, Situation, Time Memory: Intact Attention: WNL Concentration: WNL Association: WNL Fund of Knowledge: WNL Decription of patient's judgement and insights: Fair - Mood Mood: Neutral - Affect Affect: Flat - Speech Speech: Soft - Formal Thought Process Formal Thought Process: Loosening of associations - Suicidal Ideation Suicidal Ideation: No - Homicidal Ideation Homicidal Ideation: No Goal/Treatment Plan - Goal/Treatment Plan Need for Continued Stay: Remain at risks for inpatient hospitalization, Discharge may exacerbated symptoms, Severe functional impairment Progress Toward Problem(s) and Goals/Treatment Plan: Some improvement with treatment. Patient education. Supportive therapy. Continue treatment as before. Patient will go to [facility] for follow-up care after discharge from the hospital. Estimated Date of D/C: 04/15/18 - Smoking Cessation Smoking Cessation Initiated: No
[2018-04-12] MEDS: Divalproex 500 mg DR Tab PO SCH ×2 (09:31→17:28)
[2018-04-13] MEDS: Divalproex 500 mg DR Tab PO SCH ×2 (09:40→17:16)
--- NOTE | 2018-04-13 15:06 | PCM.PYCHPN ---
Psychiatric Progress Note - Psychiatric Progress Note Patient seen today, length of contact: 15 min Patient Chief Complaint: I am feeling much better Problems Identified/Issues Discussed: She was seen and evaluated, chart reviewed and discussed with the staff. She appears more organized and less internally preoccupied. She reports improvement in her mood and paranoia. She appears less delusional. As per staff she is still pacing back and forth in the hallways. However she is taking her medications and denies any side effects. Supportive therapy was given. Medication Change: No Medical Record Reviewed: Yes Mental Status Examination - Cognitive Function Orientation: Person, Place, Situation, Time Memory: Intact Attention: WNL Concentration: Poor Association: Loose Fund of Knowledge: WNL - Mood Mood: Neutral - Affect Affect: Flat - Speech Speech: Soft - Formal Thought Process Formal Thought Process: Paranoia, Loosening of associations - Suicidal Ideation Suicidal Ideation: No - Homicidal Ideation Homicidal Ideation: No Goal/Treatment Plan - Goal/Treatment Plan Need for Continued Stay: Remain at risks for inpatient hospitalization, Discharge may exacerbated symptoms, Severe functional impairment Progress Toward Problem(s) and Goals/Treatment Plan: Schizoaffective disorder bipolar type Psychoeducation Supportive therapy and group therapy Depakote for mood stabilization Klonopin for anxiety Risperdal psychosis Trazodone for insomnia Increase Risperdal for psychosis Estimated Date of D/C: 04/15/18
--- NOTE | 2018-04-13 23:54 | CARD ---
APPROVED REPORT Date of service: 04/08/2018 EKG Measurement Heart [id number] MD [id number] <Conclusion> Normal sinus rhythm with sinus arrhythmia Early repolarization Normal ECG
[2018-04-14 09:39] VITALS: BP 113/67; PULSE 82; RESP 20; TEMP 98
[2018-04-14] MEDS: Divalproex 500 mg DR Tab PO SCH (09:50)
--- NOTE | 2018-04-14 10:11 | PCM.PYCHDC ---
Mental Status Examination - Mental Status Examination Orientation: Person, Place, Situation, Time Memory: Intact Mood: Neutral Affect: Constricted Speech: Soft Attention: WNL Concentration: WNL Association: WNL Fund of Knowledge: WNL Formal Thought Process: No Impairment Description of patient's judgement and insight: good, fair Psychotic Thoughts and Behaviors: denies any AVH Suicidal Ideation: No Current Homicidal Ideation?: No Discharge Summary - Discharge Note Reason for Hospitalization: Patient is a 23 years old to the ED by the [facility] because of increasingly depressed mood, disorganized behavior and suicidal ideation. [employer] is familiar with this patient. Patient has been admitted multiple times at [facility] because of disorganized behavior and exacerbation of schizophrenia. As per the ED note, [place] and refusing to answer questions. Pt reports that she wants to kill herself. Patient remained disorganized and internally preoccupied throughout the interview. She appears very paranoid and suspicious and delusional. Patient reports that she became increasingly depressed as soon as she stopped taking her medications. She reports that she started hearing voices telling her to kill herself. Staff reports that patient remained increasingly irritable, agitated, hostile and oppositional. She remained disorganized and continued to have loose associations throughout the interview. Pt appears acutely regressed, lying in position on the bed. She also reports visual hallucinations seeing shadows and paranoia that people are following her. However she denies any drinking or any drugs. Consultations:: List each consultation separately and include: 1. Reason for request. 2. Findings. 3. Follow-up Summary of Hospital Course include:: 1. Description of specific treatment plan utilized for patients during their course of treatmen. 2. Summarize the time- course for resolution of acute symptoms and/or regressed behaviors. 3. Describe issues identified and worked on during hospitalization. 4. Describe medication utilized. 5. Describe medical problems identified and treated. 6. Reassessment of suicide risk Summary of Hospital Course: During the course of her stay, patient (pt) started progressively improving and she no longer remained irritable, anxious and paranoid. Her mood and paranoia were improved and she started attending groups and meetings and started socializing. Patient denied any feelings of hopelessness, helplessness, and worthlessness, denied any problem with the sleep or appetite, denied suicidal ideation or homicidal ideation. Pt denied any auditory or visual hallucinations. Some changes were made in her current medications and patient was discharged on following medications. She tolerated these medications very well and denied any side effects. - Final Diagnosis (DSM 5) Condition upon Discharge: STABLE DSM 5: Schizoaffective disorder bipolar type Disposition: HOME/ ROUTINE Follow-up Treatment Plan: F/U: Pt is to return to [facility] outpatient program. Pt will get Invega Susstena shots there. Education: Pt was educated and counseled about the risks and benefits of taking and not taking medications. Pt was educated and counseled about the risks of drinking and abusing drugs. Pt was educated and counseled to go to the ER or call 911 if pt develop suicidal ideation or homicidal ideation, worsening of symptoms or severe side effects of the meds. Prescriptions/Medication Reconciliation: Benztropine [Cogentin] 1 mg PO BID #60 tab Divalproex [Depakote DR] 500 mg PO BID #60 tcp Paliperidone Palmitate [Invega Sustenna] 234 mg IM ONCE #1 syr PARoxetine [Paxil] 30 mg PO DAILY #30 tab risperiDONE [RisperDAL Tab] 2 mg PO BID #60 tab risperiDONE [RisperDAL Tab] 2 mg PO HS #30 tab traZODone [Desyrel] 50 mg PO HS PRN #30 tab PRN Reason: Insomnia - Smoking Cessation Smoking Cessation Medication prescribed: No - Antipsychotic Medications Pt discharged on 2 or more routine antipsychotic medications: No
== END 2018-04-14 11:24 | disposition home or self-care (01) | DRG 430 ==
LOC: C.ER 01:17 → C.5E 14:18
PROVIDERS: ADMIT Psychiatry & Neurology Psychiatry; ATTEND Psychiatry & Neurology Psychiatry
PROC: GZHZZZZ Group Psychotherapy (ICD-10-PCS; principal; 2018-04-08)
PROC: GZ56ZZZ Individual Psychotherapy, Supportive (ICD-10-PCS; 2018-04-08)
DX: F25.0 Schizoaffective disorder, bipolar type (principal); F41.9 Anxiety disorder, unspecified; G47.00 Insomnia, unspecified; R45.851 Suicidal ideations